=== PATIENT | male | born 1940 | race Caucasian/White ===

== ENCOUNTER → 2017-09-07 08:23 | Outpatient (CLI) | payer SELFPAY ==
[2017-09-07 09:07] LABS: Abs Immature Grans 0.05 k/cumm (0.0-0.09); Absolute Basophil Count 0.01 k/cumm (0.0-0.2); Absolute Eosinophil Count 0.22 k/cumm (0.0-0.7); Absolute Lymphocyte Count 1.09 k/cumm (1.2-3.4); Absolute Monocyte Count 0.63 k/cumm (0.11-0.7); Absolute Neutrophil Count 5.44 k/cumm (1.2-6.7); Basophils % 0.1; HCT 43.6 % (40.0-50.0); HGB 14.1 g/dL (13.5-17.5); Immature Grans % 0.7; Lymphocytes % 14.7; Mean Corp. HGB Concentration 32.3 g/dL (32.0-36.0); Mean Corpuscular Hemoglobin 30.1 pg (27.0-33.0); Mean Corpuscular Volume 93.2 fL (80-95); Mean Platelet Volume 8.4 fL (8.0-11.0); Monocytes % 8.5; Platelet Count 281 x1000/uL (130-400); RBC 4.68 m/cumm (4.50-6.00); RBC Distribution Width 15.3 % (11.8-14.1); White Blood Cell Count 7.44 k/cumm (4.4-10.8)
[2017-09-07 09:18] LABS: ALT 15 U/L (12-78); AST 17 U/L (15-37); Albumin 3.3 g/dL (3.4-5.0); Alkaline Phosphatase 109 U/L (46-116); BUN 11 mg/dL (7-18); Bilirubin, Total 0.4 mg/dL (0.2-1.0); CREATININE 0.96 mg/dL (0.70-1.30); Chloride 99 mmol/L (98-107); Glucose 93 mg/dL (70-100); Sodium 135 mmol/L (136-145); Total Protein 7.5 g/dL (6.4-8.2)
[2017-09-08 10:35] LABS: PSA, Diagnostic <0.1 ng/ml (0-6.5)
[2017-09-09 00:25] LABS: Testosterone, Total 174 ng/dL (240-950)
== END ==
PROVIDERS: PCP Nurse Practitioner Family; Visit Provider Internal Medicine
DX: C61 Malignant neoplasm of prostate (principal)
CPT/HCPCS: 36415; 80053; 84403; 84153; 85025

== ENCOUNTER 2018-03-10 15:26 | Inpatient (IN) | payer MEDICARE, SELFPAY ==
[2018-03-10 15:29] VITALS: BP 123/69; PULSE 82; RESP 18; TEMP 36.5; O2SAT 94
--- NOTE | 2018-03-10 16:57 | W.ED.GENAD ---
Discharge Plan Disposition Patient Disposition: [facility] INPATIENT Condition: Poor Discharge Details Chief Complaint: Nk/Back Pain Clinical Impression: Metastatic cancer, Foot drop, right, AAA (abdominal aortic aneurysm) without rupture Primary Care Provider: Tila Lu ED Provider: Armani Meyer [place] Meds and New Rx's Prescriptions: No Action acetaminophen 650 mg Tablet Extended Release 1 - 2 tab PO BID PRNRF: 0 ibuprofen [IBU-200] 200 mg Tablet 200 mg PO BID PRNRF: 0 clotrimazole-betamethasone 45 GM cream 45 gm Topical BID RF: 0 verapamil 240 MG tablet extended release 240 mg PO HS RF: 0 Proventil HFA 200 PUFF HFA aerosol inhaler 2 puff Inhalation .Q4-6H PRN PRNRF: 0 rosuvastatin [Crestor] 10 MG tablet 10 mg PO DAILY RF: 0 aspirin 325 MG tablet 325 mg PO PRN PRNRF: 0 Medical Decision Making Patient's history and findings are worrisome for metastatic disease to the spine. Also concerned that the mass in his leg is probably metastases. He does have a history of prostate cancer. We will place an IV and obtain labs. We will CT scan the chest abdomen pelvis and reconstructed the spine at the same time. For the most part laboratory studies are unremarkable. He really has nothing of clinical significance. CT scan is significant for multiple findings. He has a large left upper lobe lung mass. He has a smaller right middle lobe lung mass. He has left axillary and mediastinal adenopathy. He has soft tissue mass right back eroding into the fourth rib. He has soft tissue mass with erosion into the left iliac wing. There is a soft tissue mass in the right anterior thigh. He has bilateral inguinal adenopathy. He also incidentally has a large infrarenal AAA without evidence of leakage. Spinal reconstruction is concerning for soft tissue mass within the spinal canal at T12-L1. MRI is recommended. Case is discussed with oncology as well as neurosurgery at [facility]. He needs MRI urgently but not emergently as his neurologic status seems to be stable. He also will need tissue diagnosis of the cancer. That would most likely be obtained from the thigh mass. [facility] does not have capability of taking him currently. Recommend admitting here for neuro checks and Decadron IV. Obtain MRI when possible and transfer to [facility] when able. Case discussed with hospitalist. Dr. Farris to come in and see the patient for admission. Medical Records Medical records reviewed: Yes I reviewed the patient's medical records. Lab Data Lab results reviewed: Yes I reviewed the patient's lab results. HPI General Mode of arrival: ambulatory. Date/Time Provider Initiated Documentation: 03/10/18 16:16. Limitations to Documentation: no limitations. Information obtained by: patient and old records reviewed. HPI Narrative: Patient presents to ED with complaint of back pain and falling. Patient tells me that he has had increasing back pain since this fall. He has been having falls the last couple of weeks. He has had increasing back pain. He feels like his right leg is weak. He denies any numbness or tingling. He denies any bladder or bowel dysfunction. He does report some mild right rib pain does not know whether he injured it falling or not. His last fall was about 1 week ago. He does have a history of prostate cancer. Sounds like he was treated with radiation and chemo. He was last seen by oncology this last summer. He denies weight loss or night sweats. He reports a good appetite. He has noticed a mass in the right upper thigh a few weeks ago. Related Data Home Medications Medication Instructions Recorded Confirmed albuterol sulfate [Proventil Hfa] 2 puff INHALATION .Q4-6H PRN PRN 11/23/16 03/10/18 clotrimazole-betamethasone 45 gm TOPICAL BID 11/23/16 03/10/18 rosuvastatin [Crestor] 10 mg PO DAILY 11/23/16 03/10/18 verapamil 240 mg PO HS 11/23/16 03/10/18 aspirin 325 mg PO PRN PRN 11/24/16 03/10/18 acetaminophen 1 - 2 tab PO BID PRN 03/10/18 03/10/18 ibuprofen [IBU-200] 200 mg PO BID PRN 03/10/18 03/10/18 Allergies Allergy/AdvReac Type Severity Reaction Status Date / Time simvastatin [From Zocor] Allergy Mild Verified 03/10/18 15:35 General Stated Complaint: Nk/Back Pain ORAL: 3 Review of Systems Constitutional Denies body ache(s), Denies fatigue, Denies fever(s), Reports frequent falls, Denies headache(s), Denies lethargy, Denies malaise, Denies night sweats and Denies poor appetite Eyes Denies change in vision, Denies diplopia and Denies eye pain ENT Denies vertigo, Denies dizziness, Denies facial pain, Denies headache(s) and Denies neck pain Cardiovascular Denies chest pain, Denies syncope, Denies edema, Denies palpitations and Denies dyspnea Respiratory Denies cough and Denies dyspnea Gastrointestinal Denies abdominal pain, Denies constipation, Denies diarrhea, Denies nausea and Denies vomiting Genitourinary Denies hematuria, Denies difficulty urinating, Denies dysuria, Denies flank pain, Denies urinary frequency, Denies urinary hesitancy, Denies urinary incontinence and Denies urinary urgency Musculoskeletal Reports back pain, Denies neck pain, Denies numbness and Denies tingling Integumentary/Breasts Denies rash and Denies wounds Neurologic Denies vertigo, Denies dizziness, Denies syncope, Reports frequent falls, Denies headache(s), Reports focal weakness (right leg), Denies numbness, Denies sensory deficit, Denies tingling and Denies paresthesias Endocrine Denies fatigue and Denies palpitations [facility] Medical History COPD (chronic obstructive pulmonary disease) (Chronic) HTN (hypertension) (Chronic) Hypercholesterolemia (Chronic) Prostate cancer (Chronic) Skin cancer (Inactive) Surgical History Hx of cataract surgery (Inactive) Social History Smoking/Tobacco Use Status: Former Tobacco Use Exam Const General: cooperative, comfortable and no acute distress Orientation: alert and oriented x3 [facility] Head: normocephalic and atraumatic Ears: external ears normal General nose exam: external nose abnormal Face and sinus: ecchymosis on the left (under left eye) and no tenderness Neck Neck: trachea midline and supple Chest Chest: normal inspection of the chest and no tenderness Resp Effort & Inspection: normal respiratory effort Auscultation: clear to auscultation bilaterally Cardio Rate: regular rate Rhythm: regular rhythm Heart Sounds: S1 normal and S2 normal Pulses: radial pulses present GI Palpation: soft and nontender Rectal Exam: normal sphincter tone, heme negative stool, prostate abnormal enlarged; nontender and No tenderness Male General Exam: Yes normal external exam Back/Spine/Pelvis Thoracic/Lumbar Spine: thoraco-lumbar ROM normal, No thoracic spinal tenderness and lumbar spinal tenderness Skin Other: Macerated skin with erythema in the rectal area. Multiple small ecchymotic regions on the upper extremities. Neuro General: alert, oriented x3 and CN's II-XI intact bilaterally Cognition: normal cognition Speech: speech normal Motor: strength abnormal (Right foot drop present. Unable to raise toes. Plantar flexion normal.) Sensory Exam: no sensory deficits noted DTR's: Rt Patellar: 3+, Lt Patellar: 3+, Rt Ankle: 1+ and Lt Ankle: 1+ Extrem General: no pedal edema and other (no deformity/tenderness) Other: Golf ball size firm nontender mass in the right upper anterior thigh. Course Vital Signs Temperature 97.7 F 03/10/18 15:29 Pulse 82 03/10/18 15:29 Respiratory Rate 18 03/10/18 15:29 Blood Pressure 123/69 03/10/18 15:29 Pulse Oximetry 94 L 03/10/18 15:29 Temperature 97.7 F 03/10/18 15:29 Temperature Source Temporal Artery Scan 03/10/18 15:29 Pulse 82 03/10/18 15:29 Respiratory Rate 18 03/10/18 15:29 Respiratory Effort Non-Labored 03/10/18 15:34 Blood Pressure 123/69 03/10/18 15:29 Blood Pressure Position Sitting 03/10/18 15:29 Pulse Oximetry 94 L 03/10/18 15:29 Oxygen Delivery Method Room Air 03/10/18 15:29 Oxygen Flow Rate 0 03/10/18 15:29 Pain Level 8 03/10/18 15:43
--- NOTE | 2018-03-10 16:58 | DI.CT_ITS ---
SYMPTOMS/DIAGNOSIS: PROSTATE CA, BACK PAIN WITH NEURO DEFICITS, RIB PAIN CT OF THE CHEST, ABDOMEN AND PELVIS: CHEST: No prior comparison exams are available. There is a large mass in the anterior left upper lobe measuring 9.7 x 7.2 cm. A right upper lobe mass is seen posteriorly measuring 4.2 cm. A right middle lobe mass is also noted measuring 2.6 cm. There are severe underlying changes of COPD. No pleural or pericardial effusions are seen. There is a left axillary lymph node measuring 1.7 cm. There are small mediastinal lymph nodes on the order of 12 mm. The pulmonary arteries and aorta are well opacified with IV contrast and no emboli or aortic dissection is seen. IMPRESSION: Bilateral pulmonary masses. The right upper lobe mass shows significant destruction of a portion of the 4th rib. ABDOMEN AND PELVIS: There is an infrarenal abdominal aortic aneurysm measuring 6.8 cm. There is significant mural thrombus. There is a small amount of high density material within the mural thrombus, which could represent a small leak. The iliac arteries are normal in diameter. There are multiple small densities in the liver; some of which appear to be cysts, others are too small to characterize. Metastatic disease cannot be excluded. The spleen, adrenals and pancreas as well as kidneys are unremarkable. Metallic densities are noted in the prostate related to treatment for prostate cancer. The bladder is unremarkable. There is a large right groin lymph node measuring 3.6 cm. There is a smaller left groin lymph node measuring 2.3 cm. There is a large soft tissue mass seen posterior to the left SI joint with adjacent destruction of the posterior aspect of the left ilium. It measures 5 cm in transverse dimension. IMPRESSION: A large soft tissue mass posterior to the left SI joint with adjacent bony erosion. Bilateral enlarged groin lymph nodes. A 6.8 cm infrarenal fusiform abdominal aortic aneurysm with a question of small amounts of leak. CT OF THE THORACIC SPINE: There is bony destruction of the right 4th rib posteriorly by a mass in the right upper lobe. There is a rounded area of slightly increased density within the central spinal canal at the T12-L1 level. No bony destruction is seen. The finding is suspicious for a metastatic lesion. CT OF THE LUMBAR SPINE: There is a destructive lesion of the spinous process of L3. There is a mild compression fracture of the superior endplate of L2. There is increased density within the vertebral body on the left side, questioning an underlying pathologic lesion. Degenerative disc changes are seen with bulging at L2-3 through L5-S1. The large soft tissue mass with erosion of the posterior left ilium is again noted. IMPRESSION: Metastatic lesion to the spinous process of L3. Mild compression fracture of the superior endplate of L2 with question of underlying pathologic lesion on the right side of the vertebral body.
[2018-03-10 17:13] LABS: Abs Immature Grans 0.04 k/cumm (0.0-0.09); Absolute Basophil Count 0.01 k/cumm (0.0-0.2); Absolute Eosinophil Count 0.13 k/cumm (0.0-0.7); Absolute Monocyte Count 0.77 k/cumm (0.11-0.7); Absolute Neutrophil Count 5.88 k/cumm (1.2-6.7); Basophils % 0.1; Eosinophils % 1.7; HCT 41.1 % (40.0-50.0); HGB 13.2 g/dL (13.5-17.5); Immature Grans % 0.5; Lymphocytes % 10.5; Mean Corp. HGB Concentration 32.1 g/dL (32.0-36.0); Mean Corpuscular Hemoglobin 29.5 pg (27.0-33.0); Mean Corpuscular Volume 91.7 fL (80-95); Mean Platelet Volume 8.6 fL (8.0-11.0); Monocytes % 10.1; Neutrophils % 77.1; Platelet Count 281 x1000/uL (130-400); RBC 4.48 m/cumm (4.50-6.00); RBC Distribution Width 17.2 % (11.8-14.1); White Blood Cell Count 7.63 k/cumm (4.4-10.8)
[2018-03-10 17:28] LABS: ALT 12 U/L (12-78); AST 28 U/L (15-37); Alkaline Phosphatase 119 U/L (46-116); Anion Gap 8.4 mmol/L (3-11); BUN 27 mg/dL (7-18); Bilirubin, Total 0.3 mg/dL (0.2-1.0); CO2 29.6 mmol/L (21.0-32.0); CREATININE 1.01 mg/dL (0.70-1.30); Calcium 9.9 mg/dL (8.5-10.1); Chloride 103 mmol/L (98-107); Glucose 107 mg/dL (70-100); Potassium 3.7 mmol/L (3.5-5.1); Sodium 141 mmol/L (136-145); Total Protein 7.4 g/dL (6.4-8.2)
[2018-03-10 17:59] VITALS: BP 131/63; PULSE 76; PULSE 79; RESP 20; O2SAT 88
[2018-03-10 18:04] VITALS: BP 131/63; PULSE 77; RESP 20; O2SAT 88
--- NOTE | 2018-03-10 18:05 | NUR.NOTE ---
patient retuned from CT, low 02 sat 2lpm nc placed Nursing Note:
--- NOTE | 2018-03-10 18:06 | NUR.NOTE ---
patient reports rlq pain since yesterday afternoon Nursing Note:
[2018-03-10] MEDS: Omnipaque 350 MG/ML 100 ML BTL IJ (18:41)
--- NOTE | 2018-03-10 19:06 | NUR.NOTE ---
patient sitting comfortbaly urine sent Nursing Note:
[2018-03-10 19:11] LABS: Bilirubin Negative (Negative); Blood Negative (Negative); Clarity Clear; Glucose Negative (Negative); Ketones Trace mg/dL (Negative); Leukocyte Esterase Negative (Negative); Nitrite Negative (Negative); Specific Gravity 1.015 (1.005-1.025); pH 6.5 (5-8)
--- NOTE | 2018-03-10 19:52 | DI.VRAD_ITS ---
Addendum created by Frances Dixon MD on 03/10/2018 7:58:33 PM EST I discussed case findings with ELLY SHIRLEY 03/10/2018 7:55 PM EST. Initial report created on 03/10/2018 7:52:08 PM EST EXAM: CT Chest With Contrast EXAM DATE/TIME: 03/10/2018 5:02 PM CLINICAL HISTORY: 77 years old, male; Condition or disease; Cancer; Other: Prostate; Other: Rib pain, back pain TECHNIQUE: Axial computed tomography images of the chest with intravenous contrast. Coronal and sagittal reformatted images were created and reviewed. CONTRAST: 100 ml of Omnipaque 350 administered intravenously. COMPARISON: No relevant prior studies available. FINDINGS: Lungs: There is a large left upper lobe anterior lung mass 9.7 x 7.2 cm. There is a right middle lobe 2.6 cm mass. Severe COPD noted. Pleural space: Normal. No pneumothorax. No pleural effusion. Heart: Coronary artery calcification/stents noted. Aorta: Normal. No aortic aneurysm. Lymph nodes: Left axillary adenopathy noted. Mediastinal adenopathy. Bones/joints: See Soft Tissues Finding. Soft tissues: There is a mixed attenuation overall low density slightly spiculated right upper lobe soft tissue mass present posteriorly. The mass measures 4.2 cm. There is erosion of the adjacent fourth rib. IMPRESSION: Lung masses concerning for primary as well as metastatic disease. Right upper lobe mass is associated fourth rib invasion. COPD. EXAM: CT Abdomen and Pelvis With Contrast EXAM DATE/TIME: 03/10/2018 5:02 PM CLINICAL HISTORY: 77 years old, male; Condition or disease; Cancer; Other: Prostate; Other: Rib pain, back pain TECHNIQUE: Axial computed tomography images of the abdomen and pelvis with intravenous contrast. Coronal and sagittal reformatted images were created and reviewed. CONTRAST: 100 ml of Omnipaque 350 administered intravenously. COMPARISON: No relevant prior studies available. FINDINGS: Lower thorax: COPD seen at the lung bases. ABDOMEN: Liver: Low-density left lobe hepatic lesion consistent with cyst. Gallbladder and bile ducts: Gallbladder contracted. Pancreas: Normal. No ductal dilation. Spleen: Normal. No splenomegaly. Adrenals: Normal. No mass. Kidneys and ureters: Normal. No hydronephrosis. Stomach and bowel: Moderate fecal retention pattern. Appendix: No evidence of appendicitis. PELVIS: Bladder: Unremarkable as visualized. Reproductive: Unremarkable as visualized. ABDOMEN and PELVIS: Intraperitoneal space: Normal. No free air. No significant fluid collection. Bones/joints: Moderate lumbar spondylosis. Soft tissues: There is an expansile soft tissue mass involving the left posterior iliac wing 5.4 cm with significant bone erosion. Vasculature: There is an infrarenal abdominal aortic aneurysm measuring up to 6.8 cm in maximum diameter. There is no evidence for adjacent leak. There is some high density material within the mural thrombus. This is nonspecific but has been described in the setting of possible impending rupture or leak. Lymph nodes: Bilateral inguinal adenopathy. There is an enhancing soft tissue mass in the right thigh just below the groin level 3 cm. IMPRESSION: 1. Soft tissue mass left iliac wing region with significant bone erosion. 2. Large infrarenal abdominal aortic aneurysm. There is currently no evidence for leak although I density material in the mural thrombus raises concern for possible impending leak or rupture. COMMENT: Preliminary interpretation is based on receipt of [id number] image(s). A final report will be issued subsequently. Dictated and Authenticated by: Frances Dixon MD. Ordering:BRYCE Lomeli MD
--- NOTE | 2018-03-10 21:16 | DI.VRAD_ITS ---
EXAM: CT Thoracic Spine With Contrast EXAM DATE/TIME: 03/10/2018 5:02 PM CLINICAL HISTORY: 77 years old, male; Condition or disease; Other: Prostates CA, back pain with neuro deficits; Disc degneration TECHNIQUE: Axial computed tomography images of the thoracic spine with intravenous contrast. CONTRAST: 100 ml of Omnipaque 350 administered intravenously. COMPARISON: No relevant prior studies available. FINDINGS: Vertebrae: Mild thoracic spondylosis. The bone mineralization appears slightly decreased. Discs/Spinal canal/Neural foramina: There is concern for possible soft tissue mass within the spinal canal at the T12-L1 level. This is not ideally characterized in technique. Soft tissues: Unremarkable. Other findings: Fourth rib erosion seen. See separate chest report. IMPRESSION: Concern for possible soft tissue mass within the spinal canal at T12-L1. MRI recommended. EXAM: CT Lumbar Spine With Contrast EXAM DATE/TIME: 03/10/2018 5:02 PM CLINICAL HISTORY: 77 years old, male; Condition or disease; Other: Prostates CA, back pain with neuro deficits; Disc degneration TECHNIQUE: Axial computed tomography images of the lumbar spine with intravenous contrast. CONTRAST: 100 ml of Omnipaque 350 administered intravenously. COMPARISON: No relevant prior studies available. FINDINGS: Vertebrae: There is moderate spondylosis. There is bone metastatic change with soft tissue mass at the spinous process level of L3. There is compression deformity at the L2 level with approximately 30% loss of vertebral body height. Chronicity uncertain. Impression include compression fracture with deformity of L2, uncertain chronicity. Discs/Spinal canal/Neural foramina: No spinal stenosis. No neural foraminal narrowing. Soft tissues: There is concern for possible soft tissue mass at the T12-L1 level versus artifact. It is not well characterized with CT technique. Vasculature: Infrarenal abdominal aortic aneurysm noted, incompletely included on the exam. See separate abdomen report. Mediastinum: Left iliac wing mass again seen. See separate abdomen report. IMPRESSION: 1. Concern for soft tissue mass T12-L1 within the spinal canal. MRI recommended if patient MRI compatible. 2. 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 COMMENT: Preliminary interpretation is based on receipt of [id number] image(s). A final report will be issued subsequently. Dictated and Authenticated by: Frances Dixon MD. Ordering:BRYCE Lomeli MD
[2018-03-10] MEDS: Dexamethasone 4 MG/ML VIAL IVP (22:35)
--- NOTE | 2018-03-10 23:22 | HPE_ITS ---
Date of service: 03/10/18 Time of Service: 23:08 Assessment and Plan (1) Myelopathy: Current visit: Yes Status: Acute Metastatic disease, very likely lung primary. The weakness is likely secondary to the spinal lesion although it should be noted that there are no specific upper motor neuron signs. We will continue steroids, plan for MRI and will need tissue diagnosis. Reviewed advanced directives with patient and he wishes to be full code. History of Present Illness Chief Complaint: weakness, back pain Narrative: Patient is a 77-year-old male smoker who presents with several months of lower back pain and several weeks of weakness in the lower extremities. Evaluation in the emergency room showed a large lung mass along with multiple bony lesions consistent with metastatic disease. In particular there was a lesion at the T12-L1 level impinging on the spinal cord. Case was reviewed with neurosurgery who recommended steroids MRI and monitoring of neurological status, did not feel patient required any urgent surgical intervention. Patient was given Decadron 4 mg and admitted for further evaluation and management. Past medical history: COPD, hypertension, and history of prostate cancer Allergies: To simvastatin Medications Tylenol as needed albuterol as needed aspirin as needed Crestor 10 daily verapamil 24 hs Physical exam: Blood pressure 131/63 pulse 77 respirations 20 O2 sat 88% on room air temp 36.9. HEENT shows bruising over the left malar eminence. Neck is supple lungs show decreased bronchial breath sounds but clear. Heart regular rate and rhythm. Abdomen is soft and nontender and rectal exams deferred neurological exam patient is oriented x3 upper extremities strength is 5/5. Lower extremity is hip flexors and knee extensors 5/5 dorsiflexion of the right ankle 1/5, of the left ankle 3/5. Toes are downgoing. Sensory is in fact intact to light touch and there is no sensory level. Deep tendon reflexes are 2+ in the upper extremities. Knee jerk 2+, ankle jerk 1+ Laboratory White count is 7.6 hematocrit 41 platelet 281 sodium 141 potassium 3.7 chloride 103 bicarb 29 BUN 27 creatinine 1.0 calcium 9.9 glucose [address] studies as described above. There is additionally an incidental finding of a 7 cm AAA Review of Systems Review of Systems All systems reviewed & are unremarkable except as noted in HPI and below [facility] Medical History COPD (chronic obstructive pulmonary disease) (Chronic) HTN (hypertension) (Chronic) Hypercholesterolemia (Chronic) Prostate cancer (Chronic) Skin cancer (Inactive) Surgical History Hx of cataract surgery (Inactive) Social History Smoking/Tobacco Use Status: Former Tobacco Use Meds Home Medications Medication Instructions Recorded Confirmed Type albuterol sulfate [Proventil Hfa] 2 puff INHALATION .Q4-6H PRN PRN 11/23/16 03/10/18 History clotrimazole-betamethasone 45 gm TOPICAL BID 11/23/16 03/10/18 History rosuvastatin [Crestor] 10 mg PO DAILY 11/23/16 03/10/18 History verapamil 240 mg PO HS 11/23/16 03/10/18 History aspirin 325 mg PO PRN PRN 11/24/16 03/10/18 History acetaminophen 1 - 2 tab PO BID PRN 03/10/18 03/10/18 History ibuprofen [IBU-200] 200 mg PO BID PRN 03/10/18 03/10/18 History Allergies Allergy/AdvReac Type Severity Reaction Status Date / Time simvastatin [From Zocor] Allergy Mild Verified 03/10/18 15:35 Results Labs : 03/10/18 17:05 03/10/18 17:05 Laboratory Results - last 24 hr 03/10/18 03/10/18 03/10/18 17:05 17:05 19:05 WBC 7.63 RBC 4.48 L Hgb 13.2 L Hct 41.1 MCV 91.7 MCH 29.5 MCHC 32.1 RDW 17.2 H Plt Count 281 MPV 8.6 Immature Gran % 0.5 Neutrophils % 77.1 Lymphocytes % 10.5 Monocytes % 10.1 Eosinophils % 1.7 Basophils % 0.1 Absolute Neutrophils 5.88 Absolute Lymphocytes 0.80 L Absolute Monocytes 0.77 H Absolute Eosinophils 0.13 Absolute Basophils 0.01 Sodium 141 Potassium 3.7 Chloride 103 Carbon Dioxide 29.6 Anion Gap 8.4 BUN 27 H Creatinine 1.01 Estimated GFR/1.73 m2 >= 60.00 Glucose 107 H Calcium 9.9 Total Bilirubin 0.3 AST 28 ALT 12 Alkaline Phosphatase 119 H Total Protein 7.4 Albumin 3.0 L Urine Color Yellow Urine Clarity Clear Urine pH 6.5 Ur Specific [place] 1.015 Urine Protein Negative Urine Ketones Trace H Urine Blood Negative Urine Nitrite Negative Urine Bilirubin Negative Urine Urobilinogen 1.0 H Ur Leukocyte Esterase Negative Urine Glucose Negative Last Vital Signs Temp 36.5 C 03/10/18 15:29 Pulse 77 03/10/18 18:04 Resp 20 03/10/18 18:04 BP 131/63 03/10/18 18:04 Pulse Ox 88 L 03/10/18 18:04
[2018-03-11] VITALS (10 sets, daily range): BP systolic 125–139; BP diastolic 68–77; PULSE 77–103; RESP 16–24; TEMP 36.7–37.1; O2SAT 87–94
[2018-03-11] MEDS: Normal Saline Flush 10 ML SYR IVP (06:02)
[2018-03-11] MEDS: Dexamethasone 4 MG/ML VIAL IVP ×2 (06:02→12:06)
[2018-03-11] MEDS: Acetaminophen 325 MG TAB 650 MG PO (06:13)
[2018-03-11 08:20] LABS: Abs Immature Grans 0.01 k/cumm (0.0-0.09); Absolute Basophil Count 0.01 k/cumm (0.0-0.2); Absolute Lymphocyte Count 0.33 k/cumm (1.2-3.4); Absolute Monocyte Count 0.09 k/cumm (0.11-0.7); Basophils % 0.2; HCT 41.5 % (40.0-50.0); HGB 13.4 g/dL (13.5-17.5); Immature Grans % 0.2; Lymphocytes % 8.1; Mean Corp. HGB Concentration 32.3 g/dL (32.0-36.0); Mean Corpuscular Hemoglobin 29.3 pg (27.0-33.0); Mean Corpuscular Volume 90.6 fL (80-95); Mean Platelet Volume 8.5 fL (8.0-11.0); Monocytes % 2.2; Neutrophils % 89.3; Platelet Count 278 x1000/uL (130-400); RBC 4.58 m/cumm (4.50-6.00); RBC Distribution Width 16.8 % (11.8-14.1); White Blood Cell Count 4.06 k/cumm (4.4-10.8)
[2018-03-11 08:21] LABS: Absolute Neutrophil Count 3.63 k/cumm (1.2-6.7)
[2018-03-11 08:28] LABS: Anion Gap 8.7 mmol/L (3-11); BUN 15 mg/dL (7-18); CO2 29.3 mmol/L (21.0-32.0); CREATININE 0.79 mg/dL (0.70-1.30); Calcium 9.4 mg/dL (8.5-10.1); Chloride 102 mmol/L (98-107); Glucose 127 mg/dL (70-100); Magnesium 1.9 mg/dL (1.8-2.4); Potassium 3.9 mmol/L (3.5-5.1); Sodium 140 mmol/L (136-145)
[2018-03-11] MEDS: Rosuvastatin 10 MG TAB PO (08:43)
[2018-03-11] MEDS: Pantoprazole 40 MG TABCR PO (09:07)
--- NOTE | 2018-03-11 11:44 | W.PM.DS.N ---
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: Status: Acute (2) Spinal cord lesion: Status: Acute (3) Myelopathy: Status: Acute (4) Right foot drop: Status: Acute (5) Aneurysm of infrarenal abdominal aorta: Status: Acute Asessment and Plan: with concern for possible impending leak or rupture, per CT read (6) Hypertension: Status: Chronic (7) COPD (chronic obstructive pulmonary disease): Status: Chronic (8) Prostate cancer: Status: Chronic (9) Ambulatory dysfunction: Status: Acute (10) Falls: Status: Acute Discharge Plan Disposition Patient Disposition: [facility] Condition: Serious Discharge Details Reason For Visit: LEG WEAKNESS,METASTATIC DISEASE OF UNKNOWN PRIMARY Admit Date/Time: 03/10/18 23:22 Admit Provider: Donovan Farris Attending Provider: Donovan Farris Primary Care Provider: Tila Lu [place] Hospital Course Hospital Course: Mr Johnson is a 77 year old male with PMHx of prostate cancer, hypertension, hypercholesterolemia, who was admitted to [facility] on 03/10/18 ([place] [facility] for a new diagnosis of metastatic cancer of unknown primary as well as a spinal cord lesion at the level of T 12 - L1, RLE weakness/R foot drop and an impending rupture of his infrarenal aortic aneurysm. The patient was recommended to be begun on IV decadron 4 mg IV Q 6 hrs by [facility] [place], as well as an MRI urgently. MRI is not available at [facility] until 03/13/18. We are also unable to perform a biopsy on this patient. We do not have oncology, neurosurgery, or vascular surgery consultants available at [facility]. The patient's condition did not deteriorate over night, but he does require an urgent transfer to [facility] to have above consultations. A call was placed to [facility] [place] center to initiate the transfer. Patient was accepted in transfer by Dr Winn. The patient is hemodynamically stable for transfer. We appreciate the help of our [facility] colleagues and wish the patient well! Home Meds and New Rx's Prescriptions: New acetaminophen [Tylenol] 325 mg Tablet 650 mg PO Q4H PRN PRNQty: 0 RF: 0 dexamethasone sodium phosphate 4 mg/mL Solution 4 mg IVP Q6H Qty: 0 RF: 0 pantoprazole 40 mg Tablet,Delayed Release (Dr/Ec) 40 mg PO DAILY@0730 Qty: 0 RF: 0 Continued clotrimazole-betamethasone 45 GM cream 45 gm Topical BID RF: 0 verapamil 240 MG tablet extended release 240 mg PO HS RF: 0 Proventil HFA 200 PUFF HFA aerosol inhaler 2 puff Inhalation .Q4-6H PRN PRNRF: 0 rosuvastatin [Crestor] 10 MG tablet 10 mg PO DAILY RF: 0 Discontinued acetaminophen 650 mg Tablet Extended Release 1 - 2 tab PO BID PRNRF: 0 ibuprofen [IBU-200] 200 mg Tablet 200 mg PO BID PRNRF: 0 aspirin 325 MG tablet 325 mg PO PRN PRNRF: 0 Discharge Instructions Activity:: bed rest Diet:: heart healthy Discharge Orders Discharge Orders: Discharge Order (Routine); Ordered 03/11/18 Ordered By: Priscila Bradford Exam Narrative Exam Narrative: General: A&Ox3, laying in bed, comfortable HEENT: Ecchymosis L cheek, EOMI, MMM Heart: RRR, mildly tachycardic Lungs: CTAB GI: abdomen soft, nontender, nondistended Extremities: R foot drop; 4/5 strength in RLE, 5/5 strength in LLE, +1 BLE pedal pulses, no edema, clubbing, or cyanosis; no sensory deficits DS: Data Vitals/I&O Vitals and I&O: Vital Signs Temperature 36.7 C 03/11/18 08:45 Temperature Source Temporal Artery Scan 03/11/18 08:45 Pulse 77 03/11/18 08:45 Pulse Rhythm Regular 03/11/18 08:45 Pulse 79 03/10/18 17:59 Respiratory Rate 17 03/11/18 08:45 Respiratory Effort Non-Labored 03/11/18 08:45 Respiratory Depth Normal 03/11/18 08:45 Respiratory Pattern Normal 03/11/18 08:45 Blood Pressure 131/71 03/11/18 08:45 Blood Pressure Mean 86 03/11/18 08:40 Blood Pressure Position Sitting 03/11/18 00:50 Pulse Oximetry 93 L 03/11/18 08:45 Oxygen Delivery Method Room Air 03/11/18 08:45 Oxygen Flow Rate 0 03/11/18 08:45 Pain Level 6 03/11/18 07:13 Intake & Output 03/10/18 03/10/18 03/11/18 11:59 23:59 11:59 Intake Total 480 / 480 Output Total 600 / 600 Balance -120 / -120 Weight 72.575 kg 67.3 kg Intake: Oral 480 / 480 Output: Urine 600 / 600 Other: Urine Color Yellow Urine Appearance Clear Urine Odor Normal Voiding Methods Urinal Pending studies at discharge: CT chest/abdomen/pelvis with IV contrast: Lung masses concerning for primary as well as metastatic disease. Right upper lobe mass is associated fourth rib invasion. There is a large left upper lobe anterior lung mass 9.7 x 7.2 cm. There is a right middle lobe 2.6 cm mass. Severe COPD noted. 1. Soft tissue mass left iliac wing region with significant bone erosion. 2. Large infrarenal abdominal aortic aneurysm. There is currently no evidence for leak although I density material in the mural thrombus raises concern for possible impending leak or rupture. CT lumbar spine with IV contrast: 1. Concern for soft tissue mass T12-L1 within the spinal canal. MRI recommended if patient MRI compatible. 2. 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 Labs on day of discharge: Labs from last 24 hours 03/11/18 03/11/18 03/11/18 08:10 08:10 08:10 WBC 4.06 L D RBC 4.58 Hgb 13.4 L Hct 41.5 MCV 90.6 MCH 29.3 MCHC 32.3 RDW 16.8 H Plt Count 278 MPV 8.5 Immature Gran % 0.2 Neutrophils % 89.3 Lymphocytes % 8.1 Monocytes % 2.2 Eosinophils % 0.0 Basophils % 0.2 Absolute Neutrophils 3.63 Absolute Lymphocytes 0.33 L Absolute Monocytes 0.09 L Absolute Eosinophils 0.00 Absolute Basophils 0.01 Sodium 140 Potassium 3.9 Chloride 102 Carbon Dioxide 29.3 Anion Gap 8.7 BUN 15 D Creatinine 0.79 Estimated GFR/1.73 m2 >= 60.00 Glucose 127 H Calcium 9.4 Magnesium 1.9 Total Bilirubin AST ALT Alkaline Phosphatase Total Protein Albumin Prostate Specific Ag Pending Urine Color Urine Clarity Urine pH Ur Specific [place] Urine Protein Urine Ketones Urine Blood Urine Nitrite Urine Bilirubin Urine Urobilinogen Ur Leukocyte Esterase Urine Glucose 03/10/18 03/10/1803/10/19 19:05 17:05 17:05 WBC 7.63 RBC 4.48 L Hgb 13.2 L Hct 41.1 MCV 91.7 MCH 29.5 MCHC 32.1 RDW 17.2 H Plt Count 281 MPV 8.6 Immature Gran % 0.5 Neutrophils % 77.1 Lymphocytes % 10.5 Monocytes % 10.1 Eosinophils % 1.7 Basophils % 0.1 Absolute Neutrophils 5.88 Absolute Lymphocytes 0.80 L Absolute Monocytes 0.77 H Absolute Eosinophils 0.13 Absolute Basophils 0.01 Sodium 141 Potassium 3.7 Chloride 103 Carbon Dioxide 29.6 Anion Gap 8.4 BUN 27 H Creatinine 1.01 Estimated GFR/1.73 m2 >= 60.00 Glucose 107 H Calcium 9.9 Magnesium Total Bilirubin 0.3 AST 28 ALT 12 Alkaline Phosphatase 119 H Total Protein 7.4 Albumin 3.0 L Prostate Specific Ag Urine Color Yellow Urine Clarity Clear Urine pH 6.5 Ur Specific [place] 1.015 Urine Protein Negative Urine Ketones Trace H Urine Blood Negative Urine Nitrite Negative Urine Bilirubin Negative Urine Urobilinogen 1.0 H Ur Leukocyte Esterase Negative Urine Glucose Negative PFSH Medical History COPD (chronic obstructive pulmonary disease) (Chronic) HTN (hypertension) (Chronic) Hypercholesterolemia (Chronic) Prostate cancer (Chronic) Skin cancer (Inactive) Surgical History Hx of cataract surgery (Inactive) Social History Smoking/Tobacco Use Status: Former Tobacco Use
--- NOTE | 2018-03-11 11:51 | DSE_ITS ---
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: Status: Acute (2) Spinal cord lesion: Status: Acute (3) Myelopathy: Status: Acute (4) Right foot drop: Status: Acute (5) Aneurysm of infrarenal abdominal aorta: Status: Acute Asessment and Plan: with concern for possible impending leak or rupture, per CT read (6) Hypertension: Status: Chronic (7) COPD (chronic obstructive pulmonary disease): Status: Chronic (8) Prostate cancer: Status: Chronic (9) Ambulatory dysfunction: Status: Acute (10) Falls: Status: Acute Discharge Plan Disposition Patient Disposition: [facility] Condition: Serious Discharge Details Reason For Visit: LEG WEAKNESS,METASTATIC DISEASE OF UNKNOWN PRIMARY Admit Date/Time: 03/10/18 23:22 Admit Provider: Donovan Fraris Attending Provider: Donovan Farris Primary Care Provider: Tila Lu [facility] Course Hospital Course: Mr Johnson is a 77 year old male with PMHx of prostate cancer, hypertension, hypercholesterolemia, who was admitted to [facility] on 03/10/18 (no beds available [place] [facility] for a new diagnosis of metastatic cancer of unknown primary as well as a spinal cord lesion at the level of T 12 - L1, RLE weakness/R foot drop and an impending rupture of his infrarenal aortic aneurysm. The patient was recommended to be begun on IV decadron 4 mg IV Q 6 hrs by [facility] [place], as well as an MRI urgently. MRI is not available at [facility] until 03/13/18. We are also unable to perform a biopsy on this patient. We do not have oncology, neurosurgery, or vascular surgery consultants available at [facility]. The patient's condition did not deteriorate over night, but he does require an urgent transfer to [facility] to have above consultations. A call was placed to [facility] [place] to initiate the transfer. Patient was accepted in transfer by Dr Winn. The patient is hemodynamically stable for transfer. We appreciate the help of our [facility] colleagues and wish the patient well! Home Meds and New Rx's Prescriptions: New acetaminophen [Tylenol] 325 mg Tablet 650 mg PO Q4H PRN PRNQty: 0 RF: 0 dexamethasone sodium phosphate 4 mg/mL Solution 4 mg IVP Q6H Qty: 0 RF: 0 pantoprazole 40 mg Tablet,Delayed Release (Dr/Ec) 40 mg PO DAILY@0730 Qty: 0 RF: 0 Continued clotrimazole-betamethasone 45 GM cream 45 gm Topical BID RF: 0 verapamil 240 MG tablet extended release 240 mg PO HS RF: 0 Proventil HFA 200 PUFF HFA aerosol inhaler 2 puff Inhalation .Q4-6H PRN PRNRF: 0 rosuvastatin [Crestor] 10 MG tablet 10 mg PO DAILY RF: 0 Discontinued acetaminophen 650 mg Tablet Extended Release 1 - 2 tab PO BID PRNRF: 0 ibuprofen [IBU-200] 200 mg Tablet 200 mg PO BID PRNRF: 0 aspirin 325 MG tablet 325 mg PO PRN PRNRF: 0 Discharge Instructions Activity:: bed rest Diet:: heart healthy Discharge Orders Discharge Orders: Discharge Order (Routine); Ordered 03/11/18 Ordered By: Priscila Bradford Exam Narrative Exam Narrative: General: A&Ox3, laying in bed, comfortable HEENT: Ecchymosis L cheek, EOMI, MMM Heart: RRR, mildly tachycardic Lungs: CTAB GI: abdomen soft, nontender, nondistended Extremities: R foot drop; 4/5 strength in RLE, 5/5 strength in LLE, +1 BLE pedal pulses, no edema, clubbing, or cyanosis; no sensory deficits DS: Data Vitals/I&O Vitals and I&O: Vital Signs Temperature 36.7 C 03/11/18 08:45 Temperature Source Temporal Artery Scan 03/11/18 08:45 Pulse 77 03/11/18 08:45 Pulse Rhythm Regular 03/11/18 08:45 Pulse 79 03/10/18 17:59 Respiratory Rate 17 03/11/18 08:45 Respiratory Effort Non-Labored 03/11/18 08:45 Respiratory Depth Normal 03/11/18 08:45 Respiratory Pattern Normal 03/11/18 08:45 Blood Pressure 131/71 03/11/18 08:45 Blood Pressure Mean 86 03/11/18 08:40 Blood Pressure Position Sitting 03/11/18 00:50 Pulse Oximetry 93 L 03/11/18 08:45 Oxygen Delivery Method Room Air 03/11/18 08:45 Oxygen Flow Rate 0 03/11/18 08:45 Pain Level 6 03/11/18 07:13 Intake & Output 03/10/18 03/10/18 03/11/18 11:59 23:59 11:59 Intake Total 480 / 480 Output Total 600 / 600 Balance -120 / -120 Weight 72.575 kg 67.3 kg Intake: Oral 480 / 480 Output: Urine 600 / 600 Other: Urine Color Yellow Urine Appearance Clear Urine Odor Normal Voiding Methods Urinal Pending studies at discharge: CT chest/abdomen/pelvis with IV contrast: Lung masses concerning for primary as well as metastatic disease. Right upper lobe mass is associated fourth rib invasion. There is a large left upper lobe anterior lung mass 9.7 x 7.2 cm. There is a right middle lobe 2.6 cm mass. Severe COPD noted. 1. Soft tissue mass left iliac wing region with significant bone erosion. 2. Large infrarenal abdominal aortic aneurysm. There is currently no evidence for leak although I density material in the mural thrombus raises concern for possible impending leak or rupture. CT lumbar spine with IV contrast: 1. Concern for soft tissue mass T12-L1 within the spinal canal. MRI recommended if patient MRI compatible. 2. 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 Labs on day of discharge: Labs from last 24 hours 03/11/18 03/11/18 03/11/18 08:10 08:10 08:10 WBC 4.06 L D RBC 4.58 Hgb 13.4 L Hct 41.5 MCV 90.6 MCH 29.3 MCHC 32.3 RDW 16.8 H Plt Count 278 MPV 8.5 Immature Gran % 0.2 Neutrophils % 89.3 Lymphocytes % 8.1 Monocytes % 2.2 Eosinophils % 0.0 Basophils % 0.2 Absolute Neutrophils 3.63 Absolute Lymphocytes 0.33 L Absolute Monocytes 0.09 L Absolute Eosinophils 0.00 Absolute Basophils 0.01 Sodium 140 Potassium 3.9 Chloride 102 Carbon Dioxide 29.3 Anion Gap 8.7 BUN 15 D Creatinine 0.79 Estimated GFR/1.73 m2 >= 60.00 Glucose 127 H Calcium 9.4 Magnesium 1.9 Total Bilirubin AST ALT Alkaline Phosphatase Total Protein Albumin Prostate Specific Ag Pending Urine Color Urine Clarity Urine pH Ur Specific [place] Urine Protein Urine Ketones Urine Blood Urine Nitrite Urine Bilirubin Urine Urobilinogen Ur Leukocyte Esterase Urine Glucose 03/10/18 03/10/1803/10/19 19:05 17:05 17:05 WBC 7.63 RBC 4.48 L Hgb 13.2 L Hct 41.1 MCV 91.7 MCH 29.5 MCHC 32.1 RDW 17.2 H Plt Count 281 MPV 8.6 Immature Gran % 0.5 Neutrophils % 77.1 Lymphocytes % 10.5 Monocytes % 10.1 Eosinophils % 1.7 Basophils % 0.1 Absolute Neutrophils 5.88 Absolute Lymphocytes 0.80 L Absolute Monocytes 0.77 H Absolute Eosinophils 0.13 Absolute Basophils 0.01 Sodium 141 Potassium 3.7 Chloride 103 Carbon Dioxide 29.6 Anion Gap 8.4 BUN 27 H Creatinine 1.01 Estimated GFR/1.73 m2 >= 60.00 Glucose 107 H Calcium 9.9 Magnesium Total Bilirubin 0.3 AST 28 ALT 12 Alkaline Phosphatase 119 H Total Protein 7.4 Albumin 3.0 L Prostate Specific Ag Urine Color Yellow Urine Clarity Clear Urine pH 6.5 Ur Specific [place] 1.015 Urine Protein Negative Urine Ketones Trace H Urine Blood Negative Urine Nitrite Negative Urine Bilirubin Negative Urine Urobilinogen 1.0 H Ur Leukocyte Esterase Negative Urine Glucose Negative PFSH Medical History COPD (chronic obstructive pulmonary disease) (Chronic) HTN (hypertension) (Chronic) Hypercholesterolemia (Chronic) Prostate cancer (Chronic) Skin cancer (Inactive) Surgical History Hx of cataract surgery (Inactive) Social History Smoking/Tobacco Use Status: Former Tobacco Use
--- NOTE | 2018-03-11 12:45 | CMPROGNOTE_ITS ---
- If Service Date Differs Date of service: 03/11/18 Time of Service: 12:44 Care Management Progress Note Lance [place] [facility] [place].
--- NOTE | 2018-03-11 13:30 | NUR.NOTE ---
Pt to [facility] from ICU at 1255. Stood and pivoted to w/c with two assist. VSS, crackles bases, upper lobes clear. Denies pain. Family at bedside. Call james within reach. Transferring momentarily to [facility].
[2018-03-13 09:34] LABS: PSA, Diagnostic <0.1 ng/ml (0-6.5)
== END 2018-03-11 14:30 | disposition short-term general hospital (02) | DRG 543 ==
LOC: ER 23:59 → ICU 03-11 00:35 → MS 03-16 14:16
PROVIDERS: Admitting Provider General Practice; Emergency Provider Emergency Medicine; PCP Nurse Practitioner Family; Visit Provider Internal Medicine
DX: C79.51 Secondary malignant neoplasm of bone (principal); G95.9 Disease of spinal cord, unspecified; C80.1 Malignant (primary) neoplasm, unspecified; R91.8 Other nonspecific abnormal finding of lung field; M21.371 Foot drop, right foot; R53.1 Weakness; I71.4 Abdominal aortic aneurysm, without rupture; Z85.46 Personal history of malignant neoplasm of prostate; I10 Essential (primary) hypertension; E78.5 Hyperlipidemia, unspecified; J44.9 Chronic obstructive pulmonary disease, unspecified; F17.210 Nicotine dependence, cigarettes, uncomplicated
CPT/HCPCS: 36415; 74177; 80048; 80053; 96374; 99222; 99239; 99285; 71260; 81003; 83735; 84153; 85025; J1100; J3490

== ENCOUNTER 2018-03-27 08:28 | Outpatient (CLI) | payer SELFPAY ==
[2018-03-27 09:01] LABS: Abs Immature Grans 0.46 k/cumm (0.0-0.09); HCT 45.6 % (40.0-50.0); HGB 14.7 g/dL (13.5-17.5); Mean Corp. HGB Concentration 32.2 g/dL (32.0-36.0); Mean Corpuscular Hemoglobin 29.2 pg (27.0-33.0); Mean Corpuscular Volume 90.7 fL (80-95); Mean Platelet Volume 8.6 fL (8.0-11.0); Platelet Count 240 x1000/uL (130-400); RBC 5.03 m/cumm (4.50-6.00); RBC Distribution Width 17.8 % (11.8-14.1); White Blood Cell Count 17.85 k/cumm (4.4-10.8)
[2018-03-27 09:20] LABS: Absolute Lymphocyte Count 0.54 k/cumm (1.2-3.4); Absolute Monocyte Count 0.89 k/cumm (0.11-0.7); Absolute Neutrophil Count 16.24 k/cumm (1.2-6.7); Diff Comment Manual Differential
[2018-03-27 09:21] LABS: Poikilocytes 1+
[2018-03-27 09:44] LABS: ALT 84 U/L (12-78); AST 38 U/L (15-37); Albumin 2.6 g/dL (3.4-5.0); Alkaline Phosphatase 114 U/L (46-116); Anion Gap 8.2 mmol/L (3-11); BUN 21 mg/dL (7-18); Bilirubin, Total 0.4 mg/dL (0.2-1.0); CO2 28.8 mmol/L (21.0-32.0); CREATININE 0.68 mg/dL (0.70-1.30); Calcium 8.7 mg/dL (8.5-10.1); Chloride 100 mmol/L (98-107); FREE T4 0.82 ng/dL (0.76-1.46); Glucose 91 mg/dL (70-100); Potassium 4.2 mmol/L (3.5-5.1); Sodium 137 mmol/L (136-145); TSH 1.39 uIU/mL (0.358-3.74); Total Protein 6.6 g/dL (6.4-8.2)
== END 2018-03-27 08:48 ==
PROVIDERS: PCP Nurse Practitioner Family; Visit Provider Internal Medicine
DX: C61 Malignant neoplasm of prostate (principal); C34.90 Malignant neoplasm of unspecified part of unspecified bronchus or lung; Z79.899 Other long term (current) drug therapy
CPT/HCPCS: 36415; 80053; 84439; 84443; 85025

== ENCOUNTER 2018-04-16 09:39 | Outpatient (CLI) | payer SELFPAY ==
[2018-04-16 10:50] LABS: HCT 42.2 % (40.0-50.0); HGB 14.2 g/dL (13.5-17.5); Mean Corp. HGB Concentration 33.6 g/dL (32.0-36.0); Mean Corpuscular Hemoglobin 30.1 pg (27.0-33.0); Mean Corpuscular Volume 89.4 fL (80-95); Mean Platelet Volume 9.2 fL (8.0-11.0); Platelet Count 124 x1000/uL (130-400); RBC 4.72 m/cumm (4.50-6.00); RBC Distribution Width 18.3 % (11.8-14.1)
[2018-04-16 11:11] LABS: ALT 67 U/L (12-78); AST 37 U/L (15-37); Albumin 2.3 g/dL (3.4-5.0); Alkaline Phosphatase 134 U/L (46-116); Anion Gap 5.2 mmol/L (3-11); BUN 21 mg/dL (7-18); Bilirubin, Total 0.3 mg/dL (0.2-1.0); CO2 31.8 mmol/L (21.0-32.0); CREATININE 0.69 mg/dL (0.70-1.30); Calcium 8.5 mg/dL (8.5-10.1); Chloride 99 mmol/L (98-107); FREE T4 0.96 ng/dL (0.76-1.46); Glucose 143 mg/dL (70-100); Potassium 3.8 mmol/L (3.5-5.1); Sodium 136 mmol/L (136-145); Total Protein 6.2 g/dL (6.4-8.2)
[2018-04-16 11:14] LABS: Absolute Neutrophil Count 24.94 k/cumm (1.2-6.7)
[2018-04-16 11:15] LABS: Diff Comment Manual Differential; RBC Morphology Normal
[2018-04-16 11:25] LABS: White Blood Cell Count 30.05 k/cumm (4.4-10.8)
== END 2018-04-16 09:59 ==
PROVIDERS: PCP Nurse Practitioner Family; Visit Provider Internal Medicine
DX: C34.90 Malignant neoplasm of unspecified part of unspecified bronchus or lung (principal); Z79.899 Other long term (current) drug therapy; C61 Malignant neoplasm of prostate
CPT/HCPCS: 36415; 80053; 84439; 84443; 85025

== ENCOUNTER 2018-05-07 09:39 | Outpatient (CLI) | payer MEDICARE, SELFPAY ==
[2018-05-07 10:09] LABS: Abs Immature Grans 5.45 k/cumm (0.0-0.09); HCT 38.3 % (40.0-50.0); HGB 12.7 g/dL (13.5-17.5); Mean Corp. HGB Concentration 33.2 g/dL (32.0-36.0); Mean Corpuscular Hemoglobin 30.4 pg (27.0-33.0); Mean Corpuscular Volume 91.6 fL (80-95); Mean Platelet Volume 9.8 fL (8.0-11.0); Platelet Count 120 x1000/uL (130-400); RBC 4.18 m/cumm (4.50-6.00); RBC Distribution Width 20.5 % (11.8-14.1)
[2018-05-07 10:28] LABS: ALT 104 U/L (12-78); Albumin 2.8 g/dL (3.4-5.0); Alkaline Phosphatase 188 U/L (46-116); Anion Gap 9.9 mmol/L (3-11); BUN 37 mg/dL (7-18); Bilirubin, Total 0.5 mg/dL (0.2-1.0); CO2 30.1 mmol/L (21.0-32.0); CREATININE 0.83 mg/dL (0.70-1.30); Calcium 8.2 mg/dL (8.5-10.1); Chloride 103 mmol/L (98-107); FREE T4 0.74 ng/dL (0.76-1.46); Glucose 131 mg/dL (70-100); Potassium 3.6 mmol/L (3.5-5.1); Sodium 143 mmol/L (136-145); Total Protein 6.1 g/dL (6.4-8.2)
[2018-05-07 10:46] LABS: AST 32 U/L (15-37)
[2018-05-07 11:03] LABS: Absolute Lymphocyte Count 0.42 k/cumm (1.2-3.4); White Blood Cell Count 42.03 k/cumm (4.4-10.8)
[2018-05-07 11:04] LABS: Absolute Neutrophil Count 37.41 k/cumm (1.2-6.7)
[2018-05-07 11:05] LABS: Anisocytosis 3+; Diff Comment Manual Differential; Nucleated RBC 3 /100WBC
== END 2018-05-07 09:59 ==
PROVIDERS: PCP Nurse Practitioner Family; Visit Provider Internal Medicine
DX: C34.90 Malignant neoplasm of unspecified part of unspecified bronchus or lung (principal); Z79.899 Other long term (current) drug therapy
CPT/HCPCS: 36415; 80053; 84439; 84443; 85025

== ENCOUNTER 2018-05-19 00:27 | Outpatient (CLI) | payer SELFPAY, MEDICARE | END 2018-05-19 00:47 | PROVIDERS: PCP Nurse Practitioner Family; Visit Provider Internal Medicine | DX: R69 Illness, unspecified (principal) | CPT/HCPCS: 36415; 80053; 84439; 84443; 85025 ==

== ENCOUNTER 2018-05-19 09:32 | Inpatient (IN) | payer MEDICARE, SELFPAY ==
[2018-05-19] VITALS (51 sets, daily range): BP systolic 79–222; BP diastolic 44–170; PULSE 53–128; RESP 15–30; TEMP 36.3–36.5; O2SAT 80–99
[2018-05-19] MEDS: Normal Saline 1,000 ML 1000 ML IV (10:00)
[2018-05-19 10:39] LABS: Abs Immature Grans 0.03 k/cumm (0.0-0.09); HCT 31.6 % (40.0-50.0); HGB 10.2 g/dL (13.5-17.5); Mean Corp. HGB Concentration 32.3 g/dL (32.0-36.0); Mean Corpuscular Volume 92.9 fL (80-95); Mean Platelet Volume 9.9 fL (8.0-11.0); RBC Distribution Width 20.6 % (11.8-14.1)
[2018-05-19] MEDS: Omnipaque 350 MG/ML 50 ML BTL PO ×2 (10:41→12:10)
[2018-05-19] MEDS: Breeza Beverage 473 ML BTL PO ×2 (10:42→10:43)
[2018-05-19 10:49] LABS: Anion Gap 11.5 mmol/L (3-11); BUN 33 mg/dL (7-18); CO2 28.5 mmol/L (21.0-32.0); Calcium 8.5 mg/dL (8.5-10.1); Chloride 102 mmol/L (98-107); Glucose 148 mg/dL (70-100); Potassium 3.7 mmol/L (3.5-5.1); Sodium 142 mmol/L (136-145)
[2018-05-19 11:26] LABS: White Blood Cell Count 1.58 k/cumm (4.4-10.8)
--- NOTE | 2018-05-19 11:26 | DI.CT_ITS ---
SYMPTOMS/DIAGNOSIS: STAGING FOR LUNG CA CT CHEST, ABDOMEN AND PELVIS: CT examination of the chest, abdomen and pelvis was performed and is compared with most recent CT of 03/10/18. The patient reportedly has lung carcinoma. The 8 cm dominant mass of the left perihilar region on the previous examination has decreased in size and now measures about 5.3 cm in greatest diameter. The right middle lobe mass previously noted is unchanged in size grossly about 19 mm transaxially. Right apical lung mass now has areas of cavitation and has mildly increased in size most clearly seen on coronal examination and measures about 4- 5 cm in diameter. Note is again made of right fourth rib erosion. No new bony destructive process identified in the thorax. Prominence of mediastinal lymph nodes again noted with no gross interval change in appearance. Largest group of nodes is subcarinal. No pulmonary embolic disease. No thoracic aortic abnormality. No axillary or supraclavicular adenopathy. In the abdomen there is no specific abnormality seen involving spleen or pancreas. Multiple tiny focal areas of decreased attenuation again seen in the liver, grossly unchanged from the previous examination. Abdominal aortic aneurysm again noted measuring up to about 6.8 cm in diameter on transaxial images. No evidence of leaking aneurysm on today's examination. No adrenal mass or renal mass seen apart from some small renal cortical cysts. No evidence of bowel obstruction or bowel wall mass. No significant abdominal wall hernia. The previously noted destructive mass arising from the region of the left SI joint appears larger on today's examination increasing in size from about 57 mm on transaxial images to about 73 mm on today's examination. No additional new lesion of the lumbar spine or pelvis identified. The bones are demineralized in a patchy fashion which is nonspecific and lytic metastatic disease is not entirely excluded. CONCLUSION: 1. Interval decreased in sizes of various pulmonary lesions. Please see above discussion. 2. No new intra-abdominal metastatic disease. 3. Increased size of destructive lesion of the region of the left SI joint. 4. No gross interval change in abdominal aortic aneurysm.
[2018-05-19 11:27] LABS: Absolute Lymphocyte Count 0.27 k/cumm (1.2-3.4); Absolute Neutrophil Count 1.15 k/cumm (1.2-6.7); Platelet Count 51 x1000/uL (130-400)
[2018-05-19 11:28] LABS: Absolute Monocyte Count 0.03 k/cumm (0.11-0.7)
[2018-05-19 11:31] LABS: Anisocytosis 2+; Diff Comment Manual Differential; Nucleated RBC 23 /100WBC
[2018-05-19 11:32] LABS: Polychromasia Present
[2018-05-19] MEDS: Omnipaque 350 MG/ML 50 ML BTL IJ (12:09)
--- NOTE | 2018-05-19 12:39 | ED.GENADUL_ITS ---
Discharge Plan Discharge Details Chief Complaint: GenMedical Primary Care Provider: Crystal Aj V ED Provider: Evelio Christina Home Meds and New Rx's Prescriptions: No Action polyethylene glycol 3350 [Miralax] 17 gram/dose powder 17 gm PO DAILY RF: 0 oxycodone 5 mg tablet 5 mg PO .q4-6 RF: 0 acetaminophen [Tylenol] 325 mg Tablet 650 mg PO Q4H PRN PRNQty: 0 RF: 0 dexamethasone sodium phosphate 4 mg/mL Solution 4 mg IVP Q6H Qty: 0 RF: 0 pantoprazole 40 mg Tablet,Delayed Release (Dr/Ec) 40 mg PO DAILY@0730 Qty: 0 RF: 0 clotrimazole-betamethasone 45 GM cream 45 gm Topical BID RF: 0 verapamil 240 MG tablet extended release 240 mg PO HS RF: 0 albuterol sulfate [Proventil HFA] 200 PUFF HFA aerosol inhaler 2 puff Inhalation .Q4-6H PRN PRNRF: 0 rosuvastatin [Crestor] 10 MG tablet 10 mg PO DAILY RF: 0 Medical Decision Making 77-year-old with a history of metastatic small cell lung CA presents with progressive weakness. Over the past 2 weeks has been increasing unable to function independently. Exam significant for lower extremity edema, bilateral gluteal pressure sores, and dry mucosa. Labs significant for pancytopenia, glucose 148, and ANC = 1.15. Scheduled chest/abdominal/pelvic CT ordered with oral contrast and nondiagnostic with known metastatic disease and a stable infrarenal aortic aneurysm. Evaluated in the ED by the hospitalist and palliative complex care nurse. Admitted to hospitalist medicine service for further evaluation and management. Medical Records Medical records reviewed: Yes I reviewed the patient's medical records. Imaging Data Radiologic Study: Attestation: I personally reviewed and interpreted this imaging study as follows: Imaging: CT Scan (Chest, abdomen, and pelvis.) My impression: Interval decreased in sizes of various pulmonary lesions. . No new intra-abdominal metastatic disease. No gross interval change in abdominal aortic aneurysm. Reviewed independently and contemporaneously by myself Radiologist's impression: Same Lab Data Lab results reviewed: Yes I reviewed the patient's lab results. Lab results narrative: Lab Results 05/19/18 05/19/18 Range/Units 10:00 10:00 WBC 1.58 L* (4.4-10.8) k/cumm RBC 3.40 L (4.50-6.00) m/cumm Hgb 10.2 L (13.5-17.5) g/dL Hct 31.6 L (40.0-50.0) % MCV 92.9 (80-95) fL MCH 30.0 (27.0-33.0) pg MCHC 32.3 (32.0-36.0) g/dL RDW 20.6 H (11.8-14.1) % Plt Count 51 L D (130-400) x1000/uL MPV 9.9 (8.0-11.0) fL Immature Gran % See Differential Neutrophils % 38.0 Band Neutrophils % 35.0 % Lymphocytes % 17.0 Monocytes % 2.0 Eosinophils % 0.0 Basophils % 0.0 Metamyelocytes % 7.0 % Myelocytes % 1.0 % Absolute Neutrophils 1.15 L (1.2-6.7) k/cumm Absolute Lymphocytes 0.27 L (1.2-3.4) k/cumm Absolute Monocytes 0.03 L (0.11-0.7) k/cumm Absolute Eosinophils 0.00 (0.0-0.7) k/cumm Absolute Basophils 0.00 (0.0-0.2) k/cumm Nucleated RBCs 23 /100WBC Differential Comment Manual differential RBC Morphology See below Polychromasia Present Anisocytosis 2+ Sodium 142 (136-145) mmol/L Potassium 3.7 (3.5-5.1) mmol/L Chloride 102 (98-107) mmol/L Carbon Dioxide 28.5 (21.0-32.0) mmol/L Anion Gap 11.5 H (3-11) mmol/L BUN 33 H (7-18) mg/dL Creatinine 0.80 (0.70-1.30) mg/dL Estimated GFR/1.73 m2 >= 60.00 (mL/min/1.73m2) Glucose 148 H (70-100) mg/dL Calcium 8.5 (8.5-10.1) mg/dL Magnesium 2.0 (1.8-2.4) mg/dL ECG Data Interpretation: Date sinus tachycardia. Frequent ectopic beats. Nonspecific ST changes. Interpreted independently and contemporaneously by myself. HPI 77-year-old with metastatic small cell lung CA, frequent falls, a known infrarenal abdominal aortic aneurysm COPD, and hypertension 3 who presents with progressive weakness. According to his family and the patient, he has been getting increasingly weak after episodes of chemotherapy. His last chemotherapy was 2 weeks ago and since he has become increasingly weak and over the past few days unable to walk and stand independently. He also has had decreased urine output but more recently has some urinary incontinence. He denies any change in bowel habits, melena, hematochezia. He has had no significant dyspnea, cough, or wheezing. Denies chest pains or palpitations. He denies generalized abdominal pain or bloating. However he does note a mild right abdominal discomfort. His abdominal aneurysm has been asymptomatic and has been followed with conservative management. General Date/Time Provider Initiated Documentation: 05/19/18 10:19 . Related Data Home Medications Medication Instructions Recorded Confirmed albuterol sulfate [Proventil Hfa] 2 puff INHALATION .Q4-6H PRN PRN 11/23/16 05/19/18 clotrimazole-betamethasone 45 gm TOPICAL BID 11/23/16 05/19/18 rosuvastatin [Crestor] 10 mg PO DAILY 11/23/16 05/19/18 verapamil 240 mg PO HS 11/23/16 05/05/18 acetaminophen [Tylenol] 650 mg PO Q4H PRN PRN #0 tab 03/11/18 05/05/18 dexamethasone sodium phosphate 4 mg IVP Q6H #0 ml 03/11/18 05/19/18 pantoprazole 40 mg PO DAILY@0730 #0 tab 03/11/18 oxycodone 5 mg tablet 5 mg PO .q4-6 tab 05/05/18 05/19/18 polyethylene glycol 3350 17 17 gm PO DAILY 05/05/18 05/05/18 gram/dose oral powder Previous Rx's Medication Instructions Recorded acetaminophen [Tylenol] 650 mg PO Q4H PRN PRN #0 tab 03/11/18 dexamethasone sodium phosphate 4 mg IVP Q6H #0 ml 03/11/18 pantoprazole 40 mg PO DAILY@0730 #0 tab 03/11/18 Allergies Allergy/AdvReac Type Severity Reaction Status Date / Time rosuvastatin [From Crestor] Allergy Intermediate Verified 05/19/18 09:58 simvastatin [From Zocor] Allergy Mild Verified 05/19/18 09:58 General Stated Complaint: GenMedical ORAL: 2 Review of Systems Review of Systems All systems are reviewed and are unremarkable except as noted in HPI and below: CONSTITUTIONAL: no fevers/chills, or change in appetite; progressive weakness and now unable to stand independently EYES: no change in vision HEENT: no throat pain or difficulty swallowing; no neck pain CARDIOVASCULAR: no chest pain, palpitations, leg swelling, or diaphoresis RESPIRATORY: no cough, dyspnea, wheezing GASTROINTESTINAL: Mild flank pain. 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) Small cell lung cancer (Chronic) Lung cancer metastatic to brain (Chronic) Palliative care patient (Chronic) Falls (Acute) Ambulatory dysfunction (Acute) Aneurysm of infrarenal abdominal aorta (Acute) Right foot drop (Acute) Spinal cord lesion (Acute) Metastatic malignant neoplasm of unknown primary site (Acute) Myelopathy (Acute) Pulmonary mass (Acute) COPD (chronic obstructive pulmonary disease) (Chronic) COPD (chronic obstructive pulmonary disease) (Chronic) HTN (hypertension) (Chronic) Hypercholesterolemia (Chronic) Hypertension (Chronic) Prostate cancer (Chronic) Prostate cancer (Chronic) Skin cancer (Inactive) Social History Smoking/Tobacco Use Status: Former Tobacco Use Tobacco: How many years used: 60 Alcohol Intake: former Drug use: Never Caregiver/Support person: Yes Household members: spouse Housing: house Number of Children: 2 number of grandchildren: 2 Communication Needs: Hard of Hearing Education Level: high school Do you need help understanding health information?: Always current occupation: retired from [employer] Pets and animals: Yes What is your relationship status?: How often do you talk on the phone with friends or family?: three or more times per week How often do you get together with friends or relatives?: three or more times per week Panel score (0-1 are the most socially isolated patients): 2 What type of physical activity do you participate in: none, sedentary lifestyle and wheelchair-bound Special wesley needs: No Agree to transfusion: Yes Seatbelt use: sometimes Do you feel safe at home: Yes Do you feel safe in your relationship?: Yes Additional Social history: grandsons present and helpful called daughter at work, left message called her again on 05/14, left message Exam Narrative Exam Narrative: Nursing note and vital signs have been reviewed and noted. GENERAL: alert, no acute distress, HEENT: atraumatic/normocephalic, PERRLA, EOMI, conjunctiva clear, external ears/canals normal; dry mucosa NECK: supple, full range of motion, no mass, normal lymphadenopathy, no thyromegaly CARDIOVASCULAR: RRR, no murmurs, nl pulses, no edema PULMONARY: nl effort, no audible wheezing or stridor, nl breath sounds with no focal deficit. no chest wall tenderness ABDOMEN: soft, non-tender, non-distended, no mass, no organomegaly EXTREMITY: Lower extremity edema, no deformity or tenderness SKIN: Bilateral gluteal erythema/pressure sores with a black eschar on the right posterior gluteal region. Also multiple pressure lesions on the posterior scrotum. His NEURO: gross motor exam normal, normal stance and gait PSYCH: alert and oriented, Course Vital Signs Temperature 97.3 F L 05/19/18 09:49 Pulse 124 H 05/19/18 09:49 Respiratory Rate 26 H 05/19/18 09:49 Blood Pressure 98/55 L 05/19/18 09:49 Pulse Oximetry 80 L 05/19/18 09:49 Temperature 97.3 F L 05/19/18 09:49 Temperature Source Skin 05/19/18 09:49 Pulse 124 H 05/19/18 09:49 Respiratory Rate 26 H 05/19/18 09:49 Respiratory Effort 05/19/18 10:06 Blood Pressure 98/55 L 05/19/18 09:49 Blood Pressure Position Sitting 05/19/18 09:49 Pulse Oximetry 80 L 05/19/18 09:49 Oxygen Delivery Method Room Air 05/19/18 09:49 Oxygen Flow Rate 0 05/19/18 09:49 Comment 05/19/18 09:49 Lab/Test Results Lab/Test Results: Laboratory Tests Range/Units 05/19/18 05/19/18 10:00 10:00 WBC (4.4-10.8) k/cumm 1.58 L* RBC (4.50-6.00) m/cumm 3.40 L Hgb (13.5-17.5) g/dL 10.2 L Hct (40.0-50.0) % 31.6 L MCV (80-95) fL 92.9 MCH (27.0-33.0) pg 30.0 MCHC (32.0-36.0) g/dL 32.3 RDW (11.8-14.1) % 20.6 H Plt Count (130-400) x1000/uL 51 L D MPV (8.0-11.0) fL 9.9 Immature Gran % See Differential Neutrophils % 38.0 Band Neutrophils % % 35.0 Lymphocytes % 17.0 Monocytes % 2.0 Eosinophils % 0.0 Basophils % 0.0 Metamyelocytes % % 7.0 Myelocytes % % 1.0 Absolute Neutrophils (1.2-6.7) k/cumm 1.15 L Absolute Lymphocytes (1.2-3.4) k/cumm 0.27 L Absolute Monocytes (0.11-0.7) k/cumm 0.03 L Absolute Eosinophils (0.0-0.7) k/cumm 0.00 Absolute Basophils (0.0-0.2) k/cumm 0.00 Nucleated RBCs /100WBC 23 Differential Comment Manual differential RBC Morphology See below Polychromasia Present Anisocytosis 2+ Sodium (136-145) mmol/L 142 Potassium (3.5-5.1) mmol/L 3.7 Chloride (98-107) mmol/L 102 Carbon Dioxide (21.0-32.0) mmol/L 28.5 Anion Gap (3-11) mmol/L 11.5 H BUN (7-18) mg/dL 33 H Creatinine (0.70-1.30) mg/dL 0.80 Estimated GFR/1.73 m2 (mL/min/1.73m2) >= 60.00 Glucose (70-100) mg/dL 148 H Calcium (8.5-10.1) mg/dL 8.5 Magnesium (1.8-2.4) mg/dL 2.0
--- NOTE | 2018-05-19 13:24 | PDOC.ERCMPRO ---
Care Management Progress Note 05/19-Dr. Bradford placed order for Palliative Care. Palliative Care Referral faxed to Palliative Care office.
--- NOTE | 2018-05-19 14:37 | NUR.NOTE ---
Nursing Note:Patient has a very large about 4 in by 3 patch of eschar/ unstable pressure ulcer on his right buttock, on his L buttock he has several much smaller stage 2 pressure ulcers. In his gluteal cleft he has a 2cm by 0.3cm crack stage 2.
[2018-05-19] MEDS: Normal Saline Flush 10 ML SYR IVP (15:40)
[2018-05-19] MEDS: Normal Saline 1,000 ML 125 ML IV (15:44)
--- NOTE | 2018-05-19 18:32 | W.PALLCONSUL ---
Date of service: 05/19/18 History of Present Illness Chief Complaint: lung cancer metastatic to liver, bones, brain Narrative: I saw Cabrera at his home on 05/10/18. That was my first time meeting him. His , who has advanced dementia, was present and unable to give me any information. His two grandsons, Que and Wiley, were both present, having just brought him back from his most recent chemo appointment. They are very worried about him. They followed me out to my car after my visit with Cabrera to express their concern. Their grandfather is not eating, very weak, sleeping most of the time. He is incontinent of urine but refused any help in the bathroom. They see him declining daily. His daughter, Alice Pena, is his DPOA and she cares for him after work every day. He has a son who is not involved in hands-on care. Dr. Crystal Aj, Cabrera's PCP, also did a home visit recently. She and I have spoken about Cabrera. I am concerned that Cabrera only has days to weeks left to live. I also expressed my concerns to Yamel Llamas (?), the RN from [facility]. I was not at all surprised to be called down the ER initially to see Cabrera and meet with his daughter Alice. I then saw Cabrera again once he arrived on the floor to help him fill out his COLST form. Consults Consult date: 05/19/18 Requesting physician: Priscila Bradford Assessment and Plan (1) Failure to thrive: Current visit: Yes Status: Acute not tolerating his chemo explained that he is now too weak to be able to receive any unlikely that he will regain his strength called PCP office to let them know of his admission (2) Pancytopenia due to chemotherapy: Current visit: Yes Status: Acute (3) Metastatic small cell carcinoma to brain: Current visit: Yes Status: Acute no headaches some mental confusion intermittently, per family HOWEVER he also does not like to address difficult issues did talk about his short life expectancy with him frankly asked where he would like to be he said he would like to go home unsure if this is possible spoke at length with his daughter about care-giving options her brother (Cabrera's son) doesn't help her son (Cabrera's grandsons) do but they have to go back to work in about 2 weeks will try to get Cabrera into a SNF for skilled care until they can figure out caregiving plan not sure if it is realistic for Cabrera to ever return home.... cannot help he is worried about her--though says that his daughter will care for herf (4) Palliative care patient: Current visit: No Status: Chronic (5) Goals of care, counseling/discussion: Current visit: Yes Status: Acute did fill out his COLST form he changed his code status on admission from FULL to DNR/DNI passed on his clinical permformance status Review of Systems Constitutional Reports body ache(s), Reports daytime sleepiness, Reports difficulty sleeping, Reports fatigue, Reports frequent falls, Reports lethargy, Reports malaise, Reports poor appetite, Reports weakness and Reports weight loss Eyes Reports dry eyes and Reports requires corrective lenses ENT Reports dry mouth and Reports hearing loss Cardiovascular Reports rapid heart rate, Reports edema, Reports lightheadedness, Reports dyspnea and Reports dyspnea on exertion Respiratory Reports dyspnea and Reports dyspnea on exertion Gastrointestinal Reports bloating, Reports constipation, Reports early satiety, Reports fecal incontinence and Reports nausea Genitourinary Reports urinary incontinence Musculoskeletal Reports myalgias, Reports atrophy, Reports muscle weakness and Reports stiffness Integumentary/Breasts Reports dry skin, Reports skin ulcer, Reports sores and Reports wounds Neurologic Reports behavioral changes, Reports confusion, Reports frequent falls, Reports memory loss and Reports weakness Psychiatric Reports abnormal sleep pattern, Reports anxiety, Reports behavioral changes, Reports change in appetite, Reports confusion, Reports depression, Reports difficulty concentrating, Reports hopelessness, Reports irritability and Reports memory loss Endocrine Reports fatigue Hematologic/Lymphatic Reports easy bruising [facility] Medical History Former smoker (Chronic) Constipation (Chronic) 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) Small cell lung cancer (Chronic) Lung cancer metastatic to brain (Chronic) Palliative care patient (Chronic) Falls (Acute) Ambulatory dysfunction (Acute) Aneurysm of infrarenal abdominal aorta (Acute) Right foot drop (Acute) Spinal cord lesion (Acute) Metastatic malignant neoplasm of unknown primary site (Acute) Myelopathy (Acute) Pulmonary mass (Acute) COPD (chronic obstructive pulmonary disease) (Chronic) COPD (chronic obstructive pulmonary disease) (Chronic) HTN (hypertension) (Chronic) Hypercholesterolemia (Chronic) Hypertension (Chronic) Prostate cancer (Chronic) Prostate cancer (Chronic) Skin cancer (Inactive) Surgical History Hx of cataract surgery (Inactive) Family History Daughter No problems noted. Son No problems noted. Grandson No problems noted. Grandson No problems noted. Social History Smoking/Tobacco Use Status: Former Tobacco Use Tobacco: How many years used: 60 Alcohol Intake: former Drug use: Never Caregiver/Support person: Yes Household members: spouse Housing: house Number of Children: 2 number of grandchildren: 2 Communication Needs: Hard of Hearing Education Level: high school Do you need help understanding health information?: Always current occupation: retired from [employer] Pets and animals: Yes What is your relationship status?: How often do you talk on the phone with friends or family?: three or more times per week How often do you get together with friends or relatives?: three or more times per week Panel score (0-1 are the most socially isolated patients): 2 What type of physical activity do you participate in: none, sedentary lifestyle and wheelchair-bound Special wesley needs: No Agree to transfusion: Yes Seatbelt use: sometimes Do you feel safe at home: Yes Do you feel safe in your relationship?: Yes Additional Social history: grandsons present and helpful called daughter at work, left message called her again on 05/14, left message Exam Const General: no acute distress, anxious, disheveled, frail appearing and ill appearing Nutritional Appearance: average body habitus Orientation: alert, awake, oriented to person and oriented to place [facility] Head: normocephalic and atraumatic Ears: hearing grossly impaired General nose exam: external nose normal Face and sinus: dry mucous membranes Eyes Conjunctivae: conjunctivae normal Sclera: sclerae normal Neck Neck: no lymphadenopathy and no JVD Chest Chest: other (port) Resp Effort & Inspection: normal respiratory effort and able to speak in complete sentences Auscultation: rales and rhonchi Cardio Jugular venous pressure: no JVD Rate: tachycardic Rhythm: regular rhythm Heart Sounds: S1 normal and S2 normal GI Inspection: normal to inspection Palpation: soft Auscultation: normal bowel sounds General: other (marley) Skin General skin exam: atrophy and dry skin Wounds: wounds noted Hair: male pattern alopecia Neuro General: alert and awake Cognition: normal cognition Speech: speech normal Gait: other (in bed, has been using walker at home, but very weak, hard to use) Motor: strength abnormal Sensory Exam: no sensory deficits noted Extrem General: clubbing, edema and muscle atrophy Psych Appearance: disheveled Mental Status: mental status grossly normal Speech and Movement: delayed speech and slowed movement Mood: anxious mood Affect: sad and anxious affect Attitude: cooperative Thought Process: impoverished Insight: limited Judgment: fair Other: on some level, he recogizes he is getting sicker Results Last Vital Signs Temp 97.9 F 05/20/18 00:00 Pulse 106 H 05/20/18 00:00 Resp 20 05/20/18 00:00 BP 96/58 L 05/20/18 00:00 Pulse Ox 92 L 05/20/18 00:00 Labs : 05/19/18 10:00 05/19/18 10:00
--- NOTE | 2018-05-19 19:15 | HPE_ITS ---
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 He was already referred to hospice as outpatient - but cannot return home due to insufficient resources at home to help take care of the patient, as evidences by presence of his pressure wounds. Patient is being initiated on comfort measures and is now DNR/DNI. Appreciate assistance of palliative care. (2) Acute respiratory failure with hypoxia: Current visit: Yes Status: Acute It is not clear that this is truly acute, and it is not surprising given patient's history of COPD and lung cancer. At this point, provide prn nebs and oxygen for comfort (3) Cord compression: Current visit: Yes Status: Chronic likely resulting in urinary and fecal incontinence. Provide a bowel regimen and marley catheter. (4) Asymmetric edema of both lower extremities: Current visit: Yes Status: Acute The chances that the patient has a DVT are rather high. However, we will not pursue imaging of his LEs as it is not consistent with the patient's goals of care (5) Bright red blood per rectum: Current visit: Yes Status: Acute Not surprising given thrombocytopenia. No workup. Comfort measures only. (6) Gluteal cleft wound: Current visit: Yes Status: Acute wound care consult with frequent turning/repositioning (7) Constipation: Current visit: No Status: Chronic Provide a bowel regimen (8) Ambulatory dysfunction: Current visit: No Status: Acute PT/OT consults (9) Aneurysm of infrarenal abdominal aorta: Current visit: No Status: Acute Will not continue statin. (10) Pancytopenia due to chemotherapy: Current visit: Yes Status: Acute will not cover with abx as no source of infection. Will no longer monitor blood work (11) Urinary retention: Current visit: Yes Status: Acute s/p marley (12) Failure to thrive: Current visit: Yes Status: Acute As above - enrolled into comfort care (13) DVT prophylaxis: Current visit: Yes Status: Acute Patient on comfort care. (14) Discharge planning issues: Current visit: Yes Status: Acute DNR/DNI Comfort measures. May have to be placed in a SNF vs swing bed status for further comfort care. 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 The last time the patient was able to walk with a walker was 5 days ago. He has had incontinence of both urine and feces. He describes frequent sensation of urinary urgency, but not dysuria. His urine has been dark. His daughter does not know if there has been blood in the urine. He has had CHAUDHRY. He has had a nonproductive cough. His daughter noted that he has had bright red blood in his stool for several days and that his legs have been swollen and asymmetric. He has been forgetful at home. His PO intake remains good, per daughter. The patient denies any headache or visual changes. When he presented, he was hypoxic to 80% on RA. He was tachycardic and hypotensive. He was given IVF and we were asked to admit the patient for further workup. He was found to have several sacral decubitus wounds, one of them black/necrotic. He seems to have a difficulty grasping the severity of his medical conditions and answers I do not know to my questions about his wishes. He met with palliative care, Dr Pearce, who spoke with the patient and the daughter. The goals of care were established to be essentially skilled comfort care, with freq uent turning and repositioning, wound care and symptom control. His code status was made DNR/DNI. Review of Systems Review of Systems 12 systems reviewed. Pertinent positives and negatives are as per HPI. [facility] Medical History Former smoker (Chronic) Constipation (Chronic) 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) Small cell lung cancer (Chronic) Lung cancer metastatic to brain (Chronic) Palliative care patient (Chronic) Falls (Acute) Ambulatory dysfunction (Acute) Aneurysm of infrarenal abdominal aorta (Acute) Right foot drop (Acute) Spinal cord lesion (Acute) Metastatic malignant neoplasm of unknown primary site (Acute) Myelopathy (Acute) Pulmonary mass (Acute) COPD (chronic obstructive pulmonary disease) (Chronic) COPD (chronic obstructive pulmonary disease) (Chronic) HTN (hypertension) (Chronic) Hypercholesterolemia (Chronic) Hypertension (Chronic) Prostate cancer (Chronic) Prostate cancer (Chronic) Skin cancer (Inactive) Social History Smoking/Tobacco Use Status: Former Tobacco Use Tobacco: How many years used: 60 Alcohol Intake: former Drug use: Never Caregiver/Support person: Yes Household members: spouse Housing: house Number of Children: 2 number of grandchildren: 2 Communication Needs: Hard of Hearing Education Level: high school Do you need help understanding health information?: Always current occupation: retired from [employer] Pets and animals: Yes What is your relationship status?: How often do you talk on the phone with friends or family?: three or more times per week How often do you get together with friends or relatives?: three or more times per week Panel score (0-1 are the most socially isolated patients): 2 What type of physical activity do you participate in: none, sedentary lifestyle and wheelchair-bound Special wesley needs: No Agree to transfusion: Yes Seatbelt use: sometimes Do you feel safe at home: Yes Do you feel safe in your relationship?: Yes Additional Social history: grandsons present and helpful called daughter at work, left message called her again on 05/14, left message Meds Home Medications Medication Instructions Recorded Confirmed Type albuterol sulfate [Proventil Hfa] 2 puff INHALATION .Q4-6H PRN PRN 11/23/16 05/19/18 History clotrimazole-betamethasone 45 gm TOPICAL BID 11/23/16 05/19/18 History rosuvastatin [Crestor] 10 mg PO DAILY 11/23/16 05/19/18 History oxycodone 5 mg tablet 5 mg PO .q4-6 tab 05/05/18 05/19/18 History dexamethasone [Decadron] 4 mg PO BID 05/19/18 05/19/18 History Allergies Allergy/AdvReac Type Severity Reaction Status Date / Time rosuvastatin [From Crestor] Allergy Intermediate Verified 05/19/18 09:58 simvastatin [From Zocor] Allergy Mild Verified 05/19/18 09:58 Exam Narrative Exam Narrative: General: Ill appearing pale elderly male, appears more edematous than the last time I saw him, forgetful, A&Ox2 Neurological: A&Ox2, BLE weakness Psychiatric: somewhat flat affect Skin: per ED, gluteal/pressure sores with black eschar/scrotal pressure sores; otherwise, pale, dry. HEENT: Atraumatic, normocephalic, pale, EOMI, Dry MM, + thrush Cardiovascular: irregularly irregular rhythm, no m/r/g Lungs: Quiet rhonchi B Gastrointestinal: abdomen soft, nontender, nondistended Extremities: asymmetric edema BLE's, R>L, no clubbing or cyanosis Results Imaging Additional studies: CT chest/abdomen/pelvis: 1. Interval decreased in sizes of various pulmonary lesions. Please see above discussion. 2. No new intra-abdominal metastatic disease. 3. Increased size of destructive lesion of the region of the left SI joint. 4. No gross interval change in abdominal aortic aneurysm. EKG: RBBB, sinus arrhythmia with PVC's Labs : 05/19/18 10:00 05/19/18 10:00 Laboratory Results - last 24 hr 05/19/18 05/19/18 10:00 10:00 WBC 1.58 L* RBC 3.40 L Hgb 10.2 L Hct 31.6 L MCV 92.9 MCH 30.0 MCHC 32.3 RDW 20.6 H Plt Count 51 L D MPV 9.9 Immature Gran % See Differential Neutrophils % 38.0 Band Neutrophils % 35.0 Lymphocytes % 17.0 Monocytes % 2.0 Eosinophils % 0.0 Basophils % 0.0 Metamyelocytes % 7.0 Myelocytes % 1.0 Absolute Neutrophils 1.15 L Absolute Lymphocytes 0.27 L Absolute Monocytes 0.03 L Absolute Eosinophils 0.00 Absolute Basophils 0.00 Nucleated RBCs 23 Differential Comment Manual differential RBC Morphology See below Polychromasia Present Anisocytosis 2+ Sodium 142 Potassium 3.7 Chloride 102 Carbon Dioxide 28.5 Anion Gap 11.5 H BUN 33 H Creatinine 0.80 Estimated GFR/1.73 m2 >= 60.00 Glucose 148 H Calcium 8.5 Magnesium 2.0 Last Vital Signs Temp 36.5 C 05/19/18 15:38 Pulse 106 H 05/19/18 15:38 Resp 20 05/19/18 15:38 BP 90/54 L 05/19/18 15:38 Pulse Ox 91 L 05/19/18 15:38
--- NOTE | 2018-05-19 19:28 | WOUNDCARE ---
Wound Care Report: This nurse was asked to consult on the care of wounds on patient's buttocks. Patient is a 77 year old male admitted for acute hypoxic respiratory failure and pancytopenia. He has had weakness and urinary and fecal incontinence x 1 week. Chart review including PMH, vital signs, medications, and labs was completed. Patient had a palliative consult today with Dr. Pearce and will be going on hospice. Goal of wound care is comfort and drainage management. Patient is soft spoken and has difficulty speaking r/t dyspnea, and also is a poor historian. He reports wounds are painful at times and other times he denies any wound pain. There are three stage II pressure injuries to patient's left buttock, measuring 5.5 x 2.5 x <0.1 cm. Wound bed is 100% red nongranulating tissue with some bruising present. Periwound skin is bruised and red, but non indurated. On the bed pad is noted to be a moderate amount of serosainguinous drainage. It is unknown if this drainage is coming from the wounds on the left buttock or the right buttock. To these wound this nurse recommends the followin. Cleanse wounds with anasept cleanser and gauze. 2. Apply skin prep to periwound skin and allowing to dry. 3. Apply mepilex with borders and changing Q3D and PRN. To the patient's right buttock is noted to be a dark purple suspected deep tissue injury measuring 11.2 x 9.2 x <0.1 cm. Skin is very fragile and periwound skin is noted to be reddened but not indurated. Also noted to patient's right buttock is noted to be a wound measuring 1.1 x 1.5 x <0.1 cm. Wound bed is conte. Unsure if this is conte slough or bruising to the wound bed. Periwound skin is reddened (but not indurated) and bruised. Patient denies having fallen recently, but daughter reports that patient has been sitting in his electric recliner most of the time and has fallen multiple times in the past week. Patient now has a urinary catheter in place which will help keep urine off of his skin. The intention of care of wounds to right buttock are to protect deep tissue injury from any further damage and the fragility of the skin and the proximity of the wounds to the anus provides some barriers to treatment. This nurse recommends the followin. Gently cleanse wounds with anasept wound cleanser and gauze. 2. Apply skin prep to preiwound skin and allow to dry. 3. Apply telfa to wound and secure with mepipore tape. 4. Change Q3D and PRN. To patient's left elbow is noted to be a scabbed abrasion measuring 0.8 x 1.5 cm. To patient's right elbow is noted to be a suspected deep tissue injury measuring 1.1 x 1 cm. This nurse recommends both elbows with a mepilex with borders and changing Q3D and PRN. Patient's right groin appears to be reddened, with a few small fissures. This nurse recommends washing this area with soap and water and applying interdry twice a day and PRN.
[2018-05-19] MEDS: Dexamethasone 4 MG TAB PO (20:09)
[2018-05-19] MEDS: Nystatin 500000 UNITS/5 ML SUSP 5ML CUP PO (20:09)
[2018-05-20] VITALS: BP 96/58; PULSE 106; RESP 20; TEMP 36.6; O2SAT 92
[2018-05-20] MEDS: oxyCODONE 5 MG TAB PO ×2 (07:08→11:07)
[2018-05-20] MEDS: Omeprazole 20 MG CAPCR PO (07:09)
[2018-05-20] MEDS: Dexamethasone 4 MG TAB PO ×2 (08:19→21:22)
[2018-05-20] MEDS: Nystatin 500000 UNITS/5 ML SUSP 5ML CUP PO ×3 (10:28→21:22)
--- NOTE | 2018-05-20 13:47 | NUR.NOTE ---
Nursing Note: Patient noted to be cold and clammy. Patient stated that he feels pretty good. Fingerstick done with a result of 240
--- NOTE | 2018-05-20 15:49 | NUR.NOTE ---
Nursing Note: This RN had multiple conversations with this patient's family. Family asked why the patient is not getting IV fluids 2-3 times, since he is so thirsty. Explained that the patient's fluid at this time is leaving his cells and entering the surrounding tissue causing all of the puffiness that they can see. Explained that further IV hydration would probably increase the swelling. Patient's family also was concerned that the patient needs to be repositioned frequently. Explained that the patient is being repositioned as he desires and that it has been pretty frequently as he gets uncomfortable quickly. Family was also considering taking the patient home but wanted nothing to do with personal care. Explained that at this time he is continually oozing stool and needs frequent personal care. Explained further that Hospice, or whomever is helping will not be at the home 30/08. Gracie Blankenship was asked to see the family to start a discussion about discharge, going home vs halfway.
--- NOTE | 2018-05-20 17:03 | W.PM.PROGNOT ---
Date of Service Date of service: 05/20/18 Time of Service: 17:03 Assessment and Plan (1) Comfort measures only status: Current visit: Yes Status: Acute DNR/DNI, [employer] measures in patient with metastatic SCLCa. Had referral as outpatient to Hospice, but could not return due to insufficient resources at home for care. Will continue current regimen to include pain regimen, steroids, antiemetics, and nebs while attempting to either place patient in a facility for comfort care vs. increasing home services with return home on hospice. Subjective Interval history since last seen: 77 year old male with a history of metastatic SCLCa, admitted from [facility] Emergency Department on 05/19 with a diagnosis of Failure To Thrive. Mr. 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 He also carries the diagnosis of Prostate Ca s/p XRT, COPD, HTN, dyslipidemia, and AAA. He was brought in to the ED by his family, with report that they could no longer care for him at home. The last time the patient was able to walk was with the utilization of a walker 5 days prior to his admission. He was also noted to be incontinent of both urine and feces. His daughter had noted BRBPR following bowel movements on several days, as well as asymmetric swelling of his legs. The patient was noted to be hypoxic in the ED, as well as tachycardic and hypotensive. Also found to have multiple sacral decubitus ulcers. Patient was referred for admission for further evaluation and treatment. Following admission Mr. Johnson and his family met with Palliative medicine, and decision was made to pursue comfort care. No other events were reported. He remains in pain, but now utilizing medications more for pain control. Exam Narrative Exam Narrative: General: Patient appears comfortable, AAOX3, NAD Psych: Normal mood and affect. Objective Objective Clinical Data: Vital Signs Temperature 36.6 C 05/20/18 00:00 Temperature Source Tympanic 05/20/18 00:00 Pulse 106 H 05/20/18 00:00 Pulse Rhythm Irregular 05/19/18 15:38 Pulse 110 H 05/19/18 14:50 Respiratory Rate 20 05/20/18 00:00 Respiratory Effort Non-Labored 05/20/18 16:39 Respiratory Depth Normal 05/20/18 16:39 Respiratory Pattern Normal 05/20/18 16:39 Blood Pressure 96/58 L 05/20/18 00:00 Blood Pressure Mean 66 05/19/18 14:45 Blood Pressure Position Sitting 05/19/18 09:49 Pulse Oximetry 92 L 05/20/18 00:00 Oxygen Delivery Method Nasal Cannula 05/20/18 00:00 Oxygen Flow Rate 3 05/20/18 00:00 Pain Level 0 05/20/18 12:07 Comment 05/19/18 09:49 Intake & Output 05/19/18 05/20/18 05/20/18 23:59 11:59 23:59 Intake Total 495 / 495 1540 / 2380 840 / 2380 Output Total 900 / 900 150 / 150 Balance -405 / -405 1390 / 2230 840 / 2230 Weight 70.6 kg Intake: IV 255 / 255 1000 / 1000 Oral 240 / 240 540 / 1380 840 / 1380 Output: Urine 900 / 900 150 / 150 Other: Urine Color Light Sandee Straw Urine Appearance Sediment Cloudy Cloudy Stool Size Small Large Stool Characteristics Soft Soft Formed Laboratory Results WBC 1.58 k/cumm (4.4-10.8) L* 05/19/18 10:00 RBC 3.40 m/cumm (4.50-6.00) L 05/19/18 10:00 Hgb 10.2 g/dL (13.5-17.5) L 05/19/18 10:00 Hct 31.6 % (40.0-50.0) L 05/19/18 10:00 MCV 92.9 fL (80-95) 05/19/18 10:00 MCH 30.0 pg (27.0-33.0) 05/19/18 10:00 MCHC 32.3 g/dL (32.0-36.0) 05/19/18 10:00 RDW 20.6 % (11.8-14.1) H 05/19/18 10:00 Plt Count 51 x1000/uL (130-400) L D 05/19/18 10:00 MPV 9.9 fL (8.0-11.0) 05/19/18 10:00 Immature Gran % See Differential 05/19/18 10:00 Neutrophils % 38.0 05/19/18 10:00 Band Neutrophils % 35.0 % 05/19/18 10:00 Lymphocytes % 17.0 05/19/18 10:00 Monocytes % 2.0 05/19/18 10:00 Eosinophils % 0.0 05/19/18 10:00 Basophils % 0.0 05/19/18 10:00 Metamyelocytes % 7.0 % 05/19/18 10:00 Myelocytes % 1.0 % 05/19/18 10:00 Absolute Neutrophils 1.15 k/cumm (1.2-6.7) L 05/19/18 10:00 Absolute Lymphocytes 0.27 k/cumm (1.2-3.4) L 05/19/18 10:00 Absolute Monocytes 0.03 k/cumm (0.11-0.7) L 05/19/18 10:00 Absolute Eosinophils 0.00 k/cumm (0.0-0.7) 05/19/18 10:00 Absolute Basophils 0.00 k/cumm (0.0-0.2) 05/19/18 10:00 Nucleated RBCs 23 /100WBC 05/19/18 10:00 Differential Comment Manual differential 05/19/18 10:00 RBC Morphology See below 05/19/18 10:00 Polychromasia Present 05/19/18 10:00 Anisocytosis 2+ 05/19/18 10:00 Sodium 142 mmol/L (136-145) 05/19/18 10:00 Potassium 3.7 mmol/L (3.5-5.1) 05/19/18 10:00 Chloride 102 mmol/L (98-107) 05/19/18 10:00 Carbon Dioxide 28.5 mmol/L (21.0-32.0) 05/19/18 10:00 Anion Gap 11.5 mmol/L (3-11) H 05/19/18 10:00 BUN 33 mg/dL (7-18) H 05/19/18 10:00 Creatinine 0.80 mg/dL (0.70-1.30) 05/19/18 10:00 Estimated GFR/1.73 m2 >= 60.00 (mL/min/1.73m2) 05/19/18 10:00 Glucose 148 mg/dL (70-100) H 05/19/18 10:00 Calcium 8.5 mg/dL (8.5-10.1) 05/19/18 10:00 Magnesium 2.0 mg/dL (1.8-2.4) 05/19/18 10:00
--- NOTE | 2018-05-20 18:04 | PDOC.CMIN ---
Care Management Initial Assess REASON FOR HOSPITALIZATION:: Acute hypoxic respiratory failure PAST MEDICAL HISTORY/PAST SURGICAL HISTORY:: Former smoker (Chronic). Constipation (Chronic). 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). Small cell lung cancer (Chronic). Lung cancer metastatic to brain (Chronic). Palliative care patient (Chronic). Falls (Acute). Ambulatory dysfunction (Acute). Aneurysm of infrarenal abdominal aorta (Acute). Right foot drop (Acute). Spinal cord lesion (Acute). Metastatic malignant neoplasm of unknown primary site (Acute). Myelopathy (Acute). Pulmonary mass (Acute). COPD (chronic obstructive pulmonary disease) (Chronic). COPD (chronic obstructive pulmonary disease) (Chronic). HTN (hypertension) (Chronic). Hypercholesterolemia (Chronic). Hypertension (Chronic). Prostate cancer (Chronic). Prostate cancer (Chronic). Skin cancer (Inactive) PREVIOUS FUNCTIONAL STATUS/SOCIAL/FAMILY SUPPORTS:: Lives with his , Ashwini, at their home in [place]. Adult children and grandchildren live nearby. Clara has been losing strength over the past few weeks and is completely dependent on others to care for his basic needs. , daughter and grandsons are very supportive. CURRENT FUNCTIONAL STATUS:: Lying in bed unresponsive. Palliative care consult completed by Dr. Pearce on 05/19 and he was changed to Comfort measures only. COLST and AD on file. ADVANCE DIRECTIVES:: On file: Ashwini Johnson named as agent and daughter Alice Pena as alternate. Has patient been provided with information about the portal?: No CODE STATUS:: Other (CUTTER BARREL DRUM) INSURANCE COVERAGE / FINANCIAL ISSUES:: Medicare Part A only. Financial assistance CURRENT HOME/COMMUNITY SERVICES/EQUIPMENT:: None at this time. DaughterAlice, has been filling out applications with community [email or web address] but there are no services in place at this time. PRIMARY CARE PHYSICIAN:: [facility]: Crystal Aj MD POTENTIAL DISCHARGE NEEDS:: [employer] services at home to assist family if Clara returns on hospice. May need placement in LTC facility. PATIENT/FAMILY EDUCATION NEEDS:: End of life care ANTICIPATED BARRIERS TO DISCHARGE:: Family cannot physically care for clara at home. TRANSPORTATION:: Ambulance PLAN:: Hospice program referral or LTC placement if family is unable to meet his care needs at home.
--- NOTE | 2018-05-20 18:28 | INITIAL_ITS ---
Care Management Initial Assess REASON FOR HOSPITALIZATION:: Acute hypoxic respiratory failure PAST MEDICAL HISTORY/PAST SURGICAL HISTORY:: Former smoker (Chronic). Constipation (Chronic). 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). Small cell lung cancer (Chronic). Lung cancer metastatic to brain (Chronic). Palliative care patient (Chronic). Falls (Acute). Ambulatory dysfunction (Acute). Aneurysm of infrarenal abdominal aorta (Acute). Right foot drop (Acute). Spinal cord lesion (Acute). Metastatic malignant neoplasm of unknown primary site (Acute). Myelopathy (Acute). Pulmonary mass (Acute). COPD (chronic obstructive pulmonary disease) (Chronic). COPD (chronic obstructive pulmonary disease) (Chronic). HTN (hypertension) (Chronic). Hypercholesterolemia (Chronic). Hypertension (Chronic). Prostate cancer (Chronic). Prostate cancer (Chronic). Skin cancer (Inactive) PREVIOUS FUNCTIONAL STATUS/SOCIAL/FAMILY SUPPORTS:: Lives with his , Ashwini, at their home in [place]. Adult children and grandchildren live nearby. Clara has been losing strength over the past few weeks and is completely dependent on others to care for his basic needs. , daughter and grandsons are very supportive. CURRENT FUNCTIONAL STATUS:: Lying in bed unresponsive. Palliative care consult completed by Dr. Pearce on 05/19 and he was changed to Comfort measures only. COLST and AD on file. ADVANCE DIRECTIVES:: On file: Ashwini Johnson named as agent and daughter Alice Pena as alternate. Has patient been provided with information about the portal?: No CODE STATUS:: Other (EMT I/99) INSURANCE COVERAGE / FINANCIAL ISSUES:: Medicare Part A only. Financial assistance CURRENT HOME/COMMUNITY SERVICES/EQUIPMENT:: None at this time. DaughterAlice, has been filling out applications with community [employer] lik [employer] but there are no services in place at this time. PRIMARY CARE PHYSICIAN:: [facility]: Crystal Aj MD POTENTIAL DISCHARGE NEEDS:: [employer] services at home to assist family if Clara returns on hospice. May need placement in LTC facility. PATIENT/FAMILY EDUCATION NEEDS:: End of life care ANTICIPATED BARRIERS TO DISCHARGE:: Family cannot physically care for clara at home. TRANSPORTATION:: Ambulance PLAN:: Hospice program referral or LTC placement if family is unable to meet his care needs at home.
[2018-05-20] MEDS: Clotrimazole/Betamet Diprop Cream 15 GM TUBE TP (21:22)
[2018-05-20] MEDS: Docusate Sodium 100 MG CAP PO (21:22)
[2018-05-20] MEDS: Senna TAB 1 TAB PO (21:22)
[2018-05-21] MEDS: Nystatin 500000 UNITS/5 ML SUSP 5ML CUP PO ×2 (09:00→20:58)
[2018-05-21] MEDS: Docusate Sodium 100 MG CAP PO ×2 (09:01→20:58)
[2018-05-21] MEDS: Omeprazole 20 MG CAPCR PO (09:01)
[2018-05-21] MEDS: Senna TAB 1 TAB PO ×2 (09:01→20:58)
[2018-05-21] MEDS: Dexamethasone 4 MG TAB PO ×2 (09:01→20:58)
[2018-05-21] MEDS: Clotrimazole/Betamet Diprop Cream 15 GM TUBE TP (09:03)
[2018-05-21] MEDS: oxyCODONE 5 MG TAB PO ×2 (09:07→14:55)
--- NOTE | 2018-05-21 13:44 | PHARADMIT ---
Addendum entered by Callie Brooks 05/22/18 16:26: pt is MEDICAL PAYMENT POSTER continuing current regimen which attempting to place patient, referrals sent per CM note Original Note: Admission Pharmacy Clinical Review pt is MEDICAL PAYMENT POSTER per MD note:Will continue current regimen to include pain regimen, steroids, antiemetics, and nebs while attempting to either place patient in a facility for comfort care vs. increasing home services with return home on hospice.
--- NOTE | 2018-05-21 14:28 | PGE_ITS ---
Date of Service Date of service: 05/21/18 Time of Service: 14:26 Assessment and Plan (1) Comfort measures only status: Current visit: Yes Status: Acute DNR/DNI, OFFICE SERVICES SPECIALIST measures in patient with metastatic SCLCa. Had referral as outpatient to Hospice, but had insufficient resources at home for care. Will continue current regimen to include pain regimen, steroids, antiemetics, and nebs while attempting to either place patient in a facility for comfort care vs. increasing home services with return home on hospice. Discussed care goals with family in detail today, and they will discuss options further with care management over the course of today and tomorrow. Subjective Interval history since last seen: 77 year old male with a history of metastatic SCLCa, admitted from [facility] Emergency Department on 05/19 with a diagnosis of Failure To Thrive. Mr. 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 He also carries the diagnosis of Prostate Ca s/p XRT, COPD, HTN, dyslipidemia, and AAA. He was brought in to the ED by his family, with report that they could no longer care for him at home. The last time the patient was able to walk was with the utilization of a walker 5 days prior to his admission. He was also noted to be incontinent of both urine and feces. His daughter had noted BRBPR following bowel movements on several days, as well as asymmetric swelling of his legs. The patient was noted to be hypoxic in the ED, as well as tachycardic and hypotensive. Also found to have multiple sacral decubitus ulcers. Patient was referred for admission for further evaluation and treatment. Following admission Mr. Johnson and his family met with Palliative medicine, and decision was made to pursue comfort care. He appears comfortable, and reports vast improvement in overall pain control. No other events were reported. Exam Narrative Exam Narrative: General: Patient appears comfortable, AAOX3, NAD Psych: Normal mood and affect. Objective Objective Clinical Data: Vital Signs Temperature 36.6 C 05/20/18 00:00 Temperature Source Tympanic 05/20/18 00:00 Pulse 106 H 05/20/18 00:00 Pulse Rhythm Irregular 05/19/18 15:38 Pulse 110 H 05/19/18 14:50 Respiratory Rate 20 05/20/18 00:00 Respiratory Effort Non-Labored 05/21/18 09:34 Respiratory Depth Normal 05/21/18 09:34 Respiratory Pattern Normal 05/21/18 09:34 Blood Pressure 96/58 L 05/20/18 00:00 Blood Pressure Mean 66 05/19/18 14:45 Blood Pressure Position Sitting 05/19/18 09:49 Pulse Oximetry 92 L 05/20/18 00:00 Oxygen Delivery Method Nasal Cannula 05/20/18 00:00 Oxygen Flow Rate 3 05/20/18 00:00 Pain Level 4 05/21/18 09:07 Comment 05/19/18 09:49 Intake & Output 05/20/18 05/21/18 05/21/18 23:59 11:59 23:59 Intake Total 840 / 2380 420 / 660 240 / 660 Output Total 200 / 200 Balance 840 / 2230 220 / 460 240 / 460 Intake: Oral 840 / 1380 420 / 660 240 / 660 Output: Urine 200 / 200 Other: Urine Color Dark Sandee Urine Appearance Clear Cloudy Laboratory Results WBC 1.58 k/cumm (4.4-10.8) L* 05/19/18 10:00 RBC 3.40 m/cumm (4.50-6.00) L 05/19/18 10:00 Hgb 10.2 g/dL (13.5-17.5) L 05/19/18 10:00 Hct 31.6 % (40.0-50.0) L 05/19/18 10:00 MCV 92.9 fL (80-95) 05/19/18 10:00 MCH 30.0 pg (27.0-33.0) 05/19/18 10:00 MCHC 32.3 g/dL (32.0-36.0) 05/19/18 10:00 RDW 20.6 % (11.8-14.1) H 05/19/18 10:00 Plt Count 51 x1000/uL (130-400) L D 05/19/18 10:00 MPV 9.9 fL (8.0-11.0) 05/19/18 10:00 Immature Gran % See Differential 05/19/18 10:00 Neutrophils % 38.0 05/19/18 10:00 Band Neutrophils % 35.0 % 05/19/18 10:00 Lymphocytes % 17.0 05/19/18 10:00 Monocytes % 2.0 05/19/18 10:00 Eosinophils % 0.0 05/19/18 10:00 Basophils % 0.0 05/19/18 10:00 Metamyelocytes % 7.0 % 05/19/18 10:00 Myelocytes % 1.0 % 05/19/18 10:00 Absolute Neutrophils 1.15 k/cumm (1.2-6.7) L 05/19/18 10:00 Absolute Lymphocytes 0.27 k/cumm (1.2-3.4) L 05/19/18 10:00 Absolute Monocytes 0.03 k/cumm (0.11-0.7) L 05/19/18 10:00 Absolute Eosinophils 0.00 k/cumm (0.0-0.7) 05/19/18 10:00 Absolute Basophils 0.00 k/cumm (0.0-0.2) 05/19/18 10:00 Nucleated RBCs 23 /100WBC 05/19/18 10:00 Differential Comment Manual differential 05/19/18 10:00 RBC Morphology See below 05/19/18 10:00 Polychromasia Present 05/19/18 10:00 Anisocytosis 2+ 05/19/18 10:00 Sodium 142 mmol/L (136-145) 05/19/18 10:00 Potassium 3.7 mmol/L (3.5-5.1) 05/19/18 10:00 Chloride 102 mmol/L (98-107) 05/19/18 10:00 Carbon Dioxide 28.5 mmol/L (21.0-32.0) 05/19/18 10:00 Anion Gap 11.5 mmol/L (3-11) H 05/19/18 10:00 BUN 33 mg/dL (7-18) H 05/19/18 10:00 Creatinine 0.80 mg/dL (0.70-1.30) 05/19/18 10:00 Estimated GFR/1.73 m2 >= 60.00 (mL/min/1.73m2) 05/19/18 10:00 Glucose 148 mg/dL (70-100) H 05/19/18 10:00 Calcium 8.5 mg/dL (8.5-10.1) 05/19/18 10:00 Magnesium 2.0 mg/dL (1.8-2.4) 05/19/18 10:00
--- NOTE | 2018-05-21 15:45 | PDOC.CMPRO ---
Care Management Progress Note S/O: Lying in bed and appears comfortable. Family members are at his side and they all seem more relaxed today. 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 P: Lance will possibly need placement. Family meeting and discussion about Palliative Care and the Hospice program will need to be continued. Daughter, Alice, would like to get help completing and following up on the services she has applied for. Continue to follow and coordinate an appropriate discharge plan for Lance and his family.
--- NOTE | 2018-05-21 15:51 | CMPROGNOTE_ITS ---
Care Management Progress Note S/O: Lying in bed and appears comfortable. Family members are at his side and they all seem more relaxed today. 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 P: Lance will possibly need placement. Family meeting and discussion about Palliative Care and the Hospice program will need to be continued. Daughter, Alice, would like to get help completing and following up on the services she has applied for. Continue to follow and coordinate an appropriate discharge plan for Lance and his family.
[2018-05-21] MEDS: Acetaminophen 325 MG TAB PO (20:58)
[2018-05-22] MEDS: Nystatin 500000 UNITS/5 ML SUSP 5ML CUP PO ×2 (08:35→20:53)
[2018-05-22] MEDS: Dexamethasone 4 MG TAB PO ×2 (08:35→20:53)
[2018-05-22] MEDS: Senna TAB 1 TAB PO (08:36)
[2018-05-22] MEDS: oxyCODONE 5 MG TAB PO (08:36)
[2018-05-22] MEDS: Omeprazole 20 MG CAPCR PO (08:36)
[2018-05-22] MEDS: Docusate Sodium 100 MG CAP PO ×2 (08:36→20:53)
[2018-05-22] MEDS: Clotrimazole/Betamet Diprop Cream 15 GM TUBE TP ×2 (08:37→20:53)
--- NOTE | 2018-05-22 10:08 | PDOC.CMPRO ---
Care Management Progress Note S/O-Met with Lance and his daughter Alice today to discuss their decision re plans. He is deferring to Alice but agrees they cannot take care of him at home. Alice advised that she has already completed [facility] application and the assessment has been completed and financial evaluation is underway. They would like him to go to [facility] in [place] if possible, and second choice in [facility]. Referral was sent to both facilities. Spoke with [facility] and they are not accepting new patients now, but will keep referral for future reference. [facility] is reviewing. Daughter Alice was advised of this and told her will notify her once [facility] responds to referral. A-77 yo man admitted with acute hypoxic respiratory failure. P-Patient and family have decided that he will need placement. Awaiting response to referral sent.
--- NOTE | 2018-05-22 14:10 | CMPROGNOTE_ITS ---
Care Management Progress Note S/O-Met with Lance and his daughter Alice today to discuss their decision re plans. He is deferring to Alice but agrees they cannot take care of him at home. Alice advised that she has already completed [facility] application and the assessment has been completed and financial evaluation is underway. They would like him to go to [facility] in [place] if possible, and second choice in [facility]. Referral was sent to both facilities. Spoke with [facility] and they are not accepting new patients now, but will keep referral for future reference. [facility] is reviewing. Daughter Alice was advised of this and told her will notify her once [facility] responds to referral. A-77 yo man admitted with acute hypoxic respiratory failure. P-Patient and family have decided that he will need placement. Awaiting response to referral sent.
--- NOTE | 2018-05-22 15:15 | PGE_ITS ---
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 Had referral as outpatient to Hospice, but had insufficient resources at home for care. Will continue current regimen to include pain regimen, steroids, antiemetics, and nebs while attempting to either place patient in a facility for comfort care vs. increasing home services with return home on hospice. Discussed care goals with family in detail previously, and they will discuss options further with care management over the course of today and tomorrow. Subjective Interval history since last seen: 77 year old male with a history of metastatic SCLCa, admitted from [facility] Emergency Department on 05/19 with a diagnosis of Failure To Thrive. Mr. 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 He also carries the diagnosis of Prostate Ca s/p XRT, COPD, HTN, dyslipidemia, and AAA. He was brought in to the ED by his family, with report that they could no longer care for him at home. The last time the patient was able to walk was with the utilization of a walker 5 days prior to his admission. He was also noted to be incontinent of both urine and feces. His daughter had noted BRBPR following bowel movements on several days, as well as asymmetric swelling of his legs. The patient was noted to be hypoxic in the ED, as well as tachycardic and hypotensive. Also found to have multiple sacral decubitus ulcers. Patient was referred for admission for further evaluation and treatment. Following admission Mr. Johnson and his family met with Palliative medicine, and decision was made to pursue comfort care. He continues to appear comfortable, and reports vast improvement in overall pain control. Determination for final disposition pending discussion with Case Management and patient's family. No other events were reported. Exam Narrative Exam Narrative: General: Patient appears comfortable, AAOX3, NAD Psych: Normal mood and affect. Objective Objective Clinical Data: Vital Signs Temperature 36.6 C 05/20/18 00:00 Temperature Source Tympanic 05/20/18 00:00 Pulse 106 H 05/20/18 00:00 Pulse Rhythm Irregular 05/19/18 15:38 Pulse 110 H 05/19/18 14:50 Respiratory Rate 20 05/20/18 00:00 Respiratory Effort Non-Labored 05/22/18 09:39 Respiratory Depth Normal 05/22/18 09:39 Respiratory Pattern Normal 05/22/18 09:39 Blood Pressure 96/58 L 05/20/18 00:00 Blood Pressure Mean 66 05/19/18 14:45 Blood Pressure Position Sitting 05/19/18 09:49 Pulse Oximetry 92 L 05/20/18 00:00 Oxygen Delivery Method Nasal Cannula 05/22/18 08:00 Oxygen Flow Rate 3 05/22/18 08:00 Pain Level 4 05/22/18 08:36 Comment 05/21/18 17:56 Intake & Output 05/21/18 05/22/18 05/22/18 23:59 11:59 23:59 Intake Total 300 / 720 645 / 885 240 / 885 Output Total 250 / 450 200 / 400 200 / 400 Balance 50 / 270 445 / 485 40 / 485 Intake: Oral 300 / 720 645 / 885 240 / 885 Output: Urine 250 / 450 200 / 400 200 / 400 Other: Urine Color Kimberly Dark Sandee Yellow Urine Appearance Clear Cloudy Clear Stool Size Small Stool Characteristics Soft Laboratory Results WBC 1.58 k/cumm (4.4-10.8) L* 05/19/18 10:00 RBC 3.40 m/cumm (4.50-6.00) L 05/19/18 10:00 Hgb 10.2 g/dL (13.5-17.5) L 05/19/18 10:00 Hct 31.6 % (40.0-50.0) L 05/19/18 10:00 MCV 92.9 fL (80-95) 05/19/18 10:00 MCH 30.0 pg (27.0-33.0) 05/19/18 10:00 MCHC 32.3 g/dL (32.0-36.0) 05/19/18 10:00 RDW 20.6 % (11.8-14.1) H 05/19/18 10:00 Plt Count 51 x1000/uL (130-400) L D 05/19/18 10:00 MPV 9.9 fL (8.0-11.0) 05/19/18 10:00 Immature Gran % See Differential 05/19/18 10:00 Neutrophils % 38.0 05/19/18 10:00 Band Neutrophils % 35.0 % 05/19/18 10:00 Lymphocytes % 17.0 05/19/18 10:00 Monocytes % 2.0 05/19/18 10:00 Eosinophils % 0.0 05/19/18 10:00 Basophils % 0.0 05/19/18 10:00 Metamyelocytes % 7.0 % 05/19/18 10:00 Myelocytes % 1.0 % 05/19/18 10:00 Absolute Neutrophils 1.15 k/cumm (1.2-6.7) L 05/19/18 10:00 Absolute Lymphocytes 0.27 k/cumm (1.2-3.4) L 05/19/18 10:00 Absolute Monocytes 0.03 k/cumm (0.11-0.7) L 05/19/18 10:00 Absolute Eosinophils 0.00 k/cumm (0.0-0.7) 05/19/18 10:00 Absolute Basophils 0.00 k/cumm (0.0-0.2) 05/19/18 10:00 Nucleated RBCs 23 /100WBC 05/19/18 10:00 Differential Comment Manual differential 05/19/18 10:00 RBC Morphology See below 05/19/18 10:00 Polychromasia Present 05/19/18 10:00 Anisocytosis 2+ 05/19/18 10:00 Sodium 142 mmol/L (136-145) 05/19/18 10:00 Potassium 3.7 mmol/L (3.5-5.1) 05/19/18 10:00 Chloride 102 mmol/L (98-107) 05/19/18 10:00 Carbon Dioxide 28.5 mmol/L (21.0-32.0) 05/19/18 10:00 Anion Gap 11.5 mmol/L (3-11) H 05/19/18 10:00 BUN 33 mg/dL (7-18) H 05/19/18 10:00 Creatinine 0.80 mg/dL (0.70-1.30) 05/19/18 10:00 Estimated GFR/1.73 m2 >= 60.00 (mL/min/1.73m2) 05/19/18 10:00 Glucose 148 mg/dL (70-100) H 05/19/18 10:00 Calcium 8.5 mg/dL (8.5-10.1) 05/19/18 10:00 Magnesium 2.0 mg/dL (1.8-2.4) 05/19/18 10:00
--- NOTE | 2018-05-22 16:08 | CHAPLAIN ---
I had a short visit with Alice (?) as Cabrera was sleeping. I explained my role and offered support. Alice asked for florina barcenas, which I got for her. I will visit again tomorrow.
[2018-05-23] MEDS: oxyCODONE 5 MG TAB PO (00:17)
[2018-05-23] MEDS: Normal Saline Flush 10 ML SYR IVP (06:32)
--- NOTE | 2018-05-23 08:34 | NUR.NOTE ---
05/23 0703 PT . 721 NOTIFIED. 0731 DAUGHTER SIENA RETURNED THIS NURSES PHONE CALL. ADVISED SIENA THAT HER FATHER HAD . 0736 ORGAN BANK NOTIFIED AND DECLINED PT FOR ORGAN DONATION. NURSING FIGHTING VEHICLE INFANTRYMAN NOTIFIED APPROXIMATELY 0718.Nursing Note:
--- NOTE | 2018-05-23 09:53 | DSE_ITS ---
Date of service: 05/23/18 Time of Service: 09:49 DS: Diagnosis Discharge Diagnosis (1) Comfort measures only status: Status: Acute (2) Metastatic small cell carcinoma to brain: Status: Acute Discharge Plan Disposition Patient Disposition: Discharge Details Reason For Visit: ACUTE HYPOXIC RESPIRATORY FAILURE,PANCYTOPENIA, Admit Date/Time: 05/19/18 12:44 Admit Provider: Priscila Bradford Attending Provider: Priscila Bradford Primary Care Provider: Crystal Aj V Hospital Course Hospital Course: CC: Dyspnea HPI: 77 year old male with a history of metastatic SCLCa, admitted from [facility] Emergency Department on 05/19 with a diagnosis of Failure To Thrive. Mr. 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 He also carries the diagnosis of Prostate Ca s/p XRT, COPD, HTN, dyslipidemia, and AAA. He was brought in to the ED by his family, with report that they could no longer care for him at home. The last time the patient was able to walk was with the utilization of a walker 5 days prior to his admission. He was also noted to be incontinent of both urine and feces. His daughter had noted BRBPR following bowel movements on several days, as well as asymmetric swelling of his legs. The patient was noted to be hypoxic in the ED, as well as tachycardic and hypotensive. Also found to have multiple sacral decubitus ulcers. Patient was referred for admission for further evaluation and treatment. Following admission Mr. Johnson and his family met with Palliative medicine, and decision was made to pursue comfort care. He was initially in pain, but became increasingly more comfortable with addition and titration of pain medications. He appeared comfortable, and reported vast improvement in overall pain and symptom control. 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 Had referral as outpatient to Hospice, but had insufficient resources at home for care. Mr. Johnson was made comfortable from both a pain and respiratory standpoint. He remained comfortable through the course of his stay. He peacefully at 7:03 a.m. on 05/23/2018. DS: Data Vitals/I&O Vitals and I&O: Vital Signs Temperature 36.6 C 05/20/18 00:00 Temperature Source Tympanic 05/20/18 00:00 Pulse 106 H 05/20/18 00:00 Pulse Rhythm Irregular 05/19/18 15:38 Pulse 110 H 05/19/18 14:50 Respiratory Rate 20 05/20/18 00:00 Respiratory Effort Non-Labored 05/22/18 21:00 Respiratory Depth Normal 05/22/18 21:00 Respiratory Pattern Normal 05/22/18 21:00 Blood Pressure 96/58 L 05/20/18 00:00 Blood Pressure Mean 66 05/19/18 14:45 Blood Pressure Position Sitting 05/19/18 09:49 Pulse Oximetry 92 L 05/20/18 00:00 Oxygen Delivery Method Nasal Cannula 05/22/18 08:00 Oxygen Flow Rate 3 05/22/18 08:00 Pain Level 1 05/22/18 09:36 Comment 05/21/18 17:56 Intake & Output 05/22/18 05/22/18 05/23/18 11:59 23:59 11:59 Intake Total 745 / 985 240 / 985 Output Total 200 / 400 200 / 400 250 / 250 Balance 545 / 585 40 / 585 -250 / -250 Intake: Oral 745 / 985 240 / 985 Output: Urine 200 / 400 200 / 400 250 / 250 Other: Urine Color Dark Sandee Yellow Dark Sandee Urine Appearance Cloudy Clear Clear Stool Size Small Stool Characteristics Soft PFSH Medical History Former smoker (Chronic) Constipation (Chronic) 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) Small cell lung cancer (Chronic) Lung cancer metastatic to brain (Chronic) Palliative care patient (Chronic) Falls (Acute) Ambulatory dysfunction (Acute) Aneurysm of infrarenal abdominal aorta (Acute) Right foot drop (Acute) Spinal cord lesion (Acute) Metastatic malignant neoplasm of unknown primary site (Acute) Myelopathy (Acute) Pulmonary mass (Acute) COPD (chronic obstructive pulmonary disease) (Chronic) COPD (chronic obstructive pulmonary disease) (Chronic) HTN (hypertension) (Chronic) Hypercholesterolemia (Chronic) Hypertension (Chronic) Prostate cancer (Chronic) Prostate cancer (Chronic) Skin cancer (Inactive) Surgical History Hx of cataract surgery (Inactive) Family History Daughter No problems noted. Son No problems noted. Grandson No problems noted. Grandson No problems noted. Social History Smoking/Tobacco Use Status: Former Tobacco Use Tobacco: How many years used: 60 Alcohol Intake: former Drug use: Never Caregiver/Support person: Yes Household members: spouse Housing: house Number of Children: 2 number of grandchildren: 2 Communication Needs: Hard of Hearing Education Level: high school Do you need help understanding health information?: Always current occupation: retired from [employer] Pets and animals: Yes What is your relationship status?: How often do you talk on the phone with friends or family?: three or more times per week How often do you get together with friends or relatives?: three or more times per week Panel score (0-1 are the most socially isolated patients): 2 What type of physical activity do you participate in: none, sedentary lifestyle and wheelchair-bound Special wesley needs: No Agree to transfusion: Yes Seatbelt use: sometimes Do you feel safe at home: Yes Do you feel safe in your relationship?: Yes Additional Social history: grandsons present and helpful called daughter at work, left message called her again on 05/14, left message
--- NOTE | 2018-05-23 10:59 | PDOC.CMDIS ---
LACE Index Scoring Tool - Questions: Length of Stay (in days): 4 - 6 Acuity (Admit via E.D.?): Yes Comorbidities: Chronic Pulmonary Disease, Any Tumor Care Management Discharge Reason for Hospitalization: Acute hypoxic respiratory failure Discharge Plan: patient this AM
--- NOTE | 2018-05-23 16:28 | CHAPLAIN ---
I was paged to Lance's room after he . Family members asked that we say the Our Father prayer together, and we did. They also asked if a sunday school missionary could offer anointing of the sick (last rites) for Lance. I told family members I would call [facility] and see if a sunday school missionary could come up before Lance's body was transported to [facility] in [place], [place]. I found out all the priests in [place] are at meeting in [place], so I called Mikael Ray, Lens Cementer at [facility] and asked if he could have a [employer] sunday school missionary offer anointing of the sick for Lance when his body arrived there. Mikael said he would see if that was possible. I let the family know this.
== END 2018-05-23 10:45 | disposition expired | DRG 189 ==
LOC: ER 13:21 → MS 15:11
PROVIDERS: Admitting Provider Internal Medicine; Emergency Provider Emergency Medicine; PCP Family Medicine; Visit Provider Internal Medicine
DX: J96.01 Acute respiratory failure with hypoxia (principal); D61.810 Antineoplastic chemotherapy induced pancytopenia; L89.323 Pressure ulcer of left buttock, stage 3; C34.90 Malignant neoplasm of unspecified part of unspecified bronchus or lung; C79.31 Secondary malignant neoplasm of brain; C79.49 Secondary malignant neoplasm of other parts of nervous system; G95.29 Other cord compression; K62.5 Hemorrhage of anus and rectum; J44.9 Chronic obstructive pulmonary disease, unspecified; R15.9 Full incontinence of feces; R32 Unspecified urinary incontinence; R60.0 Localized edema; L89.312 Pressure ulcer of right buttock, stage 2; G89.3 Neoplasm related pain (acute) (chronic); R29.6 Repeated falls; Z79.899 Other long term (current) drug therapy; Z87.891 Personal history of nicotine dependence; Z51.5 Encounter for palliative care
CPT/HCPCS: 36415; 51702; 74177; 80048; 96361; 99223; 99231; 99232; 99238; 99255; 99285; 71260; 83735; 85025; 99284; J8540; Q9967